=== PATIENT | female | born 1960 | race Caucasian/White ===

== ENCOUNTER 2018-08-03 08:37 | Outpatient (CLI) | payer BC ==
--- NOTE | 2018-08-03 09:32 | ULT ---
US Cyst Aspiration History: Infection. Pain. Comparison: Radiograph 2014 Findings: No significant joint fluid. No abnormal mass. Impression: No significant joint fluid for aspiration.
== END 2018-08-03 08:38 | disposition home or self-care (01) ==
LOC: RAD 08:37
DX: Z47.89 Encounter for other orthopedic aftercare (principal); M25.551 Pain in right hip
CPT/HCPCS: 76942

== ENCOUNTER 2020-04-02 14:05 | Inpatient (IN) | payer BC ==
[~2020-04-02 14:05] MED LIST: Iopamidol-370 76% 500 ML 1 ML ONE
[2020-04-02 14:42] LABS: #Eosinphils 0.1 thou/uL (0.0-0.7); #Lymphocytes 2.2 thou/uL (1.20-3.40); #Monocytes 1.2 thou/uL (0.11-0.59); #Neutrophils 15.9 thou/uL (1.40-6.50); %Basophils 0.1 % (0.0-1.0); %Eosinophils 0.3 % (0.0-10.0); %Lymphocytes 11.4 % (21.0-51.0); %Neutrophils 82.2 % (42.0-75.0); Hemoglobin 9.7 g/dL (12.0-16.0); Mean Corpuscular HGB CONC 32.3 g/dL (32.0-36.0); Mean Corpuscular Hemoglobin 29.2 pg (27.0-31.0); Mean Corpuscular Volume 90.5 fL (78.0-98.0); Mean Platelet Volume 6.1 fL (7.4-10.4); Platelet Count 742 thou/uL (130-400); RBC Distribution Width 13.1 % (11.5-14.5); Red Blood Cell (RBC) Count 3.31 mill/uL (4.20-5.40); White Blood Cell (WBC) Count 19.3 thou/uL (4.8-10.8)
[2020-04-02 15:01] LABS: ALT (SGPT) 44 U/L (8-55); AST (SGOT) 43 U/L (5-34); Albumin 2.5 g/dL (3.5-5.0); Alkaline Phosphatase 152 U/L (40-110); Anion Gap 15 mmol/L (10-20); BUN (Urea Nitrogen) 11 mg/dL (9.8-20.1); Bilirubin, Total 0.8 mg/dL (0.2-1.2); Calc. Creatinine Clearance 0 mL/min (70-130); Calcium 8.1 mg/dL (7.8-10.44); Carbon Dioxide 28 mmol/L (22-29); Chloride 96 mmol/L (98-107); Globulin 4.4 g/dL (2.4-3.5); Glucose 136 mg/dL (70-105); Protein, Total 6.9 g/dL (6.0-8.3); Sodium 136 mmol/L (136-145)
[2020-04-02 15:09] LABS: Potassium 2.9 mmol/L (3.5-5.1)
[2020-04-02] MEDS ORDERED: Heparin 1,000 UNITS/ML VIAL ONE (16:38)
[2020-04-02] MEDS ORDERED: Cefepime 2 GM VIAL ONE (16:51)
[2020-04-02] MEDS ORDERED: Promethazine HCl 25 MG/ML VIAL ONE (16:51)
--- NOTE | 2020-04-02 18:19 | CT ---
CT ABDOMEN WITH CONTRAST CT PELVIS WITH CONTRAST: DATE: 04/02/2020 HISTORY: 60-year-old female with recurrent UTI, but with worsening symptoms, malaise, nausea, vomiting, chills , and fever, despite antibiotic therapy. Rule out perinephric abscess. COMPARISON: none TECHNIQUE: IV injection of iodinated contrast media: administered. Oral contrast media:Not administered FINDINGS: There is a low-density lesion with density of 33 Hounsfield units within the left psoas muscle, expan ding the left psoas muscle from L1 to L5, measuring approximately 3.5 cm AP by 2.2 cm transverse by 13 cm craniocaudal. The inferior aspect of the left psoas muscle through lower L5, S1, and lower leve ls, is enlarged, without the low-attenuation lesion in it. There is no evidence of pyelonephritis or hydronephrosis. Small bilateral pleural effusions. Right femoral head, neck, and much of the intertrochanteric bone, are absent. Between the right remaining proximal femur and the empty right hip socket, there is an irregularly-sh aped large fluid collection measuring approximately 14 x 6.5 x 8 cm, with thick soft tissue density renee (probably enhancing). There are multiple scars overlying this large collection. The right acetabulum is widened, and has irregular surfaces. Normal, thin renee of urinary bladder. Approximately 1 x 1.5 cm diverticulum protruding from the posterior lateral surface of the urinary bl adder. Small amount of free fluid in the dependent portion of the pelvic cavity on the right. No convincing evidence of colonic diverticulitis. No small bowel dilation or pneumoperitoneum. No major pathology of abdominal aorta, adrenals, pancreas, liver, or spleen. Tiny calcified gallstones at the fundus. No pericholecystic edema. Levoscoliosis of lumbar spine. Multilevel high-grade degenerative disc disease of lumbar spine. IMPRESSION: 1) vertically long low-density lesion expanding the left psoas muscle, plus additional expansion of l ower left psoas muscle. This could represent intramuscular abscess plus myositis or intramuscular hematoma. 2.) Status post disarticulation of right hip. 3) large, complex fluid collection at the disarticulation site. This could represent chronic hematoma or abscess. 4) small bilateral pleural effusions 5) high-grade lumbar spondylosis with levoscoliosis.
[2020-04-02 18:47] LABS: Bacteria/HPF None Seen HPF (None Seen); Bilirubin Negative (Negative); Blood, Urine Trace (Negative); Clarity Clear (Clear); Glucose, Urine (Dipstick) Normal (Negative); Ketone, Urine Negative (Negative); Leukocyte Negative Leu/uL (Negative); Nitrite Negative (Negative); Protein, Urine (Dipstick) 10 mg/dL (Neg-Trace); RBC/HPF 0-3 HPF (0-3); Specific Gravity, Urine 1.026 (1.002-1.036); Squamous Epithelial 0-3 HPF (0-3); Urobilinogen Normal mg/dL (Less than 2); WBC/HPF 0-3 HPF (0-3); pH, Urine 6.5 (5.0-9.0)
--- NOTE | 2020-04-02 18:53 | RAD ---
PORTABLE CHEST ONE VIEW: Date: 04-02-2020 Time: 6:14 p.m. History: Sepsis Comparison: None FINDINGS: The heart size is normal. No lobar consolidation, pneumothoraces or pleural effusions are seen. IMPRESSION: No acute process. POS: MEG
[2020-04-02] MEDS ORDERED: Vancomycin 1 GM/200 ML BAG ONE (19:14)
[2020-04-02 19:21] LABS: Lactic Acid 1.4 mmol/L (0.5-2.2)
[2020-04-02 19:29] LABS: SARS-CoV-2 NAA Rapid Test Not Detected (NotDetected)
[2020-04-02] MEDS ORDERED: Acetaminophen 500 MG TAB ONE (22:21)
[2020-04-03] MEDS ORDERED: Vancomycin 1 GM in Premix Bag 1 BAG IVPB SCH (06:00)
[2020-04-03] MEDS ORDERED: Cefepime 2 GM in Sodium Chloride 0.9% 100 ML IVPB SCH (06:00)
--- NOTE | 2020-04-03 07:58 | HP ---
CHIEF COMPLAINT: Sepsis with right hip abscess. HISTORY OF PRESENT ILLNESS: The patient is a 60-year-old female, who had come to see Dr. Stanford 7 to 10 days earlier with what appeared to be a bladder infection. Because the pain extended up her back somewhat and she presented with some CVA tenderness, she was treated with Rocephin IM injections. The patient failed to respond to therapy, continuing to have fever, at which point, it was recommended that she come to the emergency room for further evaluation. In [facility], CT scan revealed a large right hip articular fluid collection that is complex in nature. She had been febrile. At this point, it was decided to put her in the hospital for further evaluation. She has long history of difficulty with the right hip including disarticulation, prosthetic removal and infection. Dr. Peguero has seen the patient in the past and has treated her for hip dislocation. PAST MEDICAL HISTORY: Significant for osteoarthritis, multiple hip procedures, history of pulmonary embolism greater than 20 years ago and a fractured sternum. PAST SURGICAL HISTORY: The patient's surgeries include a cervical fusion of C5 through C6, right hip replacement, right femur surgery. The aforementioned multiple right hip surgeries, left and right knee surgery. PSYCHIATRIC HISTORY: Has been significant for depression. SOCIAL HISTORY: Drinks socially once a month. Denies drug use. There is no smoking history. ALLERGIES: TO LEVAQUIN. CURRENT MEDICATIONS: Only the aforementioned Rocephin 1 g IM on a daily basis since last mid week. REVIEW OF SYSTEMS: CONSTITUTIONAL: Admits to general fatigue, malaise, and fever. HEENT: Denies drainage or pain in eyes, ears, nose, or throat. CHEST: Denies shortness of breath or coughing. CARDIOVASCULAR: Denies chest pain or palpitations. GASTROINTESTINAL: Has had recurrent nausea with occasional bouts of emesis. No diarrhea. GENITOURINARY: No longer has dysuria or blood in urine or stool. MUSCULOSKELETAL: Has had a disarticulated hip for some time. Has been wheelchair bound and has arthritis also in her foot. SKIN: No new rashes or lesions. NEUROLOGICAL: Cranial nerves are intact. Mentation is good. Denies headaches. PHYSICAL EXAMINATION: At the time of admission; VITAL SIGNS: Blood pressure on arrival 135/90, pulse 104, respirations 22, and temperature 102.1. Pain scale 4/10 with an O2 saturation of 93% on room air. She denies any exposure to COVID illness. HEENT: Normocephalic, atraumatic. Pupils are equal, round, and reactive to light. Extraocular muscles are intact. TMs, nares, and pharynx are clear. NECK: Supple. CHEST: Clear to auscultation. BREASTS: Deferred. HEART: Regular rate and rhythm without murmur. Tachycardic. ABDOMEN: Soft, nontender without appreciable organomegaly. GENITOURINARY: Deferred. EXTREMITIES: Without clubbing or cyanosis. There is mild edema present. SKIN: No rashes or lesions. NEUROLOGIC: Cranial nerves are intact. Unable to test gait and cerebellar function. Sensory exam is grossly intact. Mental status is clear. LABORATORY DATA: Thus far shows WBCs at 19,300, hemoglobin 9, hematocrit 30, and platelets at 742, with a left shift. Sedimentation rate is elevated at 111. CRP is elevated at 26.45. Electrolytes; sodium 136, potassium 2.9, chloride 96, CO2 of 28, BUN 11, creatinine 0.68 with a GFR of 88, and glucose 136. Lactic acid 2.7 initially down to 1.4 four hours later. AST slightly elevated at 43, ALT 44, alkaline phosphatase elevated at 152. Urinalysis has trace blood and she has influenza and COVID negative. Chest x-ray shows no acute process. CT of the abdomen and pelvis reveals a large complex fluid collection at the disarticulation site. She also has disarticulated right hip, small bilateral pleural effusions and high-grade lumbar spondylosis with levoscoliosis. ASSESSMENT: 1. Sepsis. 2. Right hip abscess. PLAN: Will be Orthopedic consultation for possible open drainage versus a radiological aspiration. We will continue her on her antibiotics, pain management, and serial re-evaluation. She is currently medically stable. Face time was 30 minutes. Job ID: [id number]
[2020-04-03 10:45] LABS: #Eosinphils 0.2 thou/uL (0.0-0.7); #Lymphocytes 1.5 thou/uL (1.20-3.40); #Neutrophils 9.2 thou/uL (1.40-6.50); %Basophils 0.3 % (0.0-1.0); %Eosinophils 1.4 % (0.0-10.0); %Lymphocytes 12.4 % (21.0-51.0); %Neutrophils 77.8 % (42.0-75.0); Hemoglobin 7.9 g/dL (12.0-16.0); Mean Corpuscular HGB CONC 32.6 g/dL (32.0-36.0); Mean Corpuscular Hemoglobin 30.1 pg (27.0-31.0); Mean Corpuscular Volume 92.2 fL (78.0-98.0); Mean Platelet Volume 6.1 fL (7.4-10.4); Platelet Count 540 thou/uL (130-400); RBC Distribution Width 13.2 % (11.5-14.5); Red Blood Cell (RBC) Count 2.63 mill/uL (4.20-5.40); White Blood Cell (WBC) Count 11.8 thou/uL (4.8-10.8)
[2020-04-03 10:58] LABS: Anion Gap 11 mmol/L (10-20); BUN (Urea Nitrogen) 7 mg/dL (9.8-20.1); Calc. Creatinine Clearance 168 mL/min (70-130); Calcium 7.5 mg/dL (7.8-10.44); Carbon Dioxide 28 mmol/L (22-29); Chloride 103 mmol/L (98-107); Glucose 100 mg/dL (70-105); Sodium 139 mmol/L (136-145)
[2020-04-03 11:04] LABS: Potassium 2.7 mmol/L (3.5-5.1)
[2020-04-03] MEDS ORDERED: Ondansetron PF 4 MG/2 ML Vial IVP PRN (11:59)
[2020-04-03] MEDS: NS 0.9% w/ 20 MEQ KCL 1,000 ML IV SCH ×2 (13:16→19:15)
[2020-04-03] MEDS: Acetaminophen 325 MG TAB PO PRN (13:17)
[2020-04-03 15:10] LABS: INR-International Normal Ratio 1.3; PTT 40.1 sec (22.9-36.1); Prothrombin Time 16.9 sec (12.0-14.7)
[2020-04-03] MEDS ORDERED: Sodium Bicarbonate 2.5 MEQ/5 ML VIAL ONE (15:30)
[2020-04-03 18:08] LABS: RBC Count-Automated (BF) 2326 /cu.mm; WBC/Nucleated-Auto (BF) 30904 uL
[2020-04-03 18:10] LABS: BF Color Yellow; Body Fluid Source Synovial Fluid; Clarity Cloudy/Turbid (Clear); Tube # EDTA
[2020-04-03] MEDS: Cefepime 2 GM in Sodium Chloride 0.9% 100 ML IVPB SCH (18:11)
[2020-04-03 18:12] LABS: BF Segmented Neutrophils 81 %; Cell Count Non Hematic 17 %; Lymphocytes 2 %
[2020-04-03] MEDS: Potassium Chloride 20 MEQ TAB PO SCH (18:12)
[2020-04-03 18:24] LABS: Synovial Fluid, Protein 3.9 g/dL (Not Available)
[2020-04-03 18:50] LABS: Iron 11 ug/dL (50-170); Iron Binding Capacity, Total 105 mcg/dL (265-497)
[2020-04-03] MEDS: Vancomycin 1.5 GRAM/300 ML BAG 1.5 GM in Premix Bag 1 BAG IVPB SCH (19:00)
[2020-04-03] MEDS: Acetaminophen/Codeine 30-300mg Tablet PO PRN (19:20)
[2020-04-03] MEDS: Promethazine HCl 25 MG in Sodium Chloride 0.9% 50 ML IVPB PRN (20:46)
[2020-04-03] MEDS: HYDROcodone/Acetaminophen 5/325 mg Tablet PO PRN (23:30)
[2020-04-04] MEDS: NS 0.9% w/ 20 MEQ KCL 1,000 ML IV SCH ×3 (04:20→20:13)
[2020-04-04] MEDS: Cefepime 2 GM in Sodium Chloride 0.9% 100 ML IVPB SCH ×2 (04:20→16:12)
[2020-04-04] MEDS: Vancomycin 1.5 GRAM/300 ML BAG 1.5 GM in Premix Bag 1 BAG IVPB SCH ×2 (05:31→18:25)
[2020-04-04 06:05] LABS: #Eosinphils 0.3 thou/uL (0.0-0.7); #Lymphocytes 1.6 thou/uL (1.20-3.40); #Monocytes 0.9 thou/uL (0.11-0.59); #Neutrophils 7.2 thou/uL (1.40-6.50); %Basophils 0.5 % (0.0-1.0); %Eosinophils 2.9 % (0.0-10.0); %Lymphocytes 16.1 % (21.0-51.0); %Monocytes 8.8 % (0.0-10.0); %Neutrophils 71.8 % (42.0-75.0); Mean Corpuscular HGB CONC 31.8 g/dL (32.0-36.0); Mean Corpuscular Hemoglobin 28.8 pg (27.0-31.0); Mean Corpuscular Volume 90.8 fL (78.0-98.0); Platelet Count 568 thou/uL (130-400); RBC Distribution Width 13.4 % (11.5-14.5); Red Blood Cell (RBC) Count 2.42 mill/uL (4.20-5.40)
[2020-04-04 06:23] LABS: Anion Gap 11 mmol/L (10-20); BUN (Urea Nitrogen) 7 mg/dL (9.8-20.1); Calc. Creatinine Clearance 188 mL/min (70-130); Calcium 7.3 mg/dL (7.8-10.44); Carbon Dioxide 23 mmol/L (22-29); Chloride 105 mmol/L (98-107); Glucose 94 mg/dL (70-105); Potassium 3.4 mmol/L (3.5-5.1); Sodium 136 mmol/L (136-145)
--- NOTE | 2020-04-04 08:29 | CT ---
PROCEDURE: CT Pelvis WO Con PROVIDED CLINICAL HISTORY: Large fluid collection right hip joint. Aspiration and possible drainage of collection was requested. COMPARISON: CT abdomen and pelvis on 04/02/2020 TECHNIQUE: The procedure including the risks and common locations were explained the patient, informed consent w as obtained. Patient was placed on the CT scan table in the supine position. Limited noncontrasted CT scan was obtained through the pelvis with grid localizer overlying right hip. An area was marked a nd then meticulously prepped and draped in usual sterile fashion. The skin and subcutaneous tissues were infiltrated with buffered 1% lidocaine for local anesthesia. A 21-gauge micropuncture needle was advanced followed by axial noncontrasted CT images. Needle was then further advanced, and there was a return of nonviscous yellow fluid. Approximately 22 mL of flui d was aspirated. Fluid was evaluated by KELVIN Toro of the orthopedic service and only aspiration was requested this time. Specimen was sent for labs. The needle was removed, and hemostasis was achieved with direct pressure. Dry sterile dressing was pl aced. The patient tolerated the procedure well and without immediate complication. IMPRESSION: 1. Large right hip joint fluid collection. 2. Technically successful CT-guided aspiration of the right hip collection. Labs are currently pendnatacha g.
[2020-04-04] MEDS: Ferrous Sulfate 325 MG TAB PO SCH ×2 (08:50→16:12)
[2020-04-04] MEDS: Folic Acid 1 MG TAB PO SCH (08:50)
[2020-04-04] MEDS: Potassium Chloride 20 MEQ TAB PO SCH ×2 (08:50→16:12)
--- NOTE | 2020-04-04 12:18 | PRG ---
DATE OF SERVICE: 04/04/2020 SUBJECTIVE: Unfortunately, Luis's hip aspiration yielded gram negative rods. I have talked to Dr. Rasheed this morning about another aspiration and placement of a pigtail drainage tube. Her anemia has gotten little worse. Her hemoglobin is 7 and hematocrit 22 this morning. She actually ran a fever last night, and she has been a little tachycardic. Clinically, she looked good yesterday, but I believe she has deteriorated a little bit with sats being lower in the range of 91% to 92% on nasal cannula 1 L. Yesterday, she was 95%. On exam, her hip exam is essentially unchanged and no imaging has been performed. 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 PLAN: 1. I have talked to Dr. Rasheed about reinserting today and leaving a pigtail catheter. 2. Dr. Nieto has been consulted, and I believe 2 units of packed red cells have been ordered. 3. At this point, no plans to take the patient to the operating room for surgical intervention since her blood cultures are gram-positive cocci and she has gram-negative rods in her pseudo-joint on the right. At this point, we will just attempt to decompress as best as possible and await treatment recommendations from Dr. Nieto. Job ID: [id number]
[2020-04-04] MEDS: Acetaminophen 325 MG TAB PO PRN (12:53)
[2020-04-04] MEDS ORDERED: Midazolam HCl 2 mg/2 ml Vial ONE (13:28)
[2020-04-04] MEDS ORDERED: Sodium Bicarbonate 2.5 MEQ/5 ML VIAL ONE (13:28)
[2020-04-04] MEDS ORDERED: Fentanyl 100 MCG/2 ML VIAL ONE (13:28)
--- NOTE | 2020-04-04 17:11 | CT ---
PROCEDURE: CT guided drainage right hip fluid collection PROVIDED CLINICAL HISTORY: Patient with large right hip fluid collection. Aspiration one day ago demonstrated gram-negative rods . Placement of drainage catheter was requested. COMPARISON: CT abdomen and pelvis on 04/02/[address] pelvis on 04/03/2019 TECHNIQUE: After informed consent was obtained, the patient was placed on the CT scan table in the supine positi on. Limited noncontrasted CT scan was obtained through the pelvis with grid localizer overlying the right hip. An area was marked and then meticulously prepped and draped in usual sterile fashion. Skin and subcutaneous tissues were infiltrated with buffered 1% lidocaine for local anesthesia at the intended puncture site. A 21-gauge needle was advanced into the collection and confirmation was obtained with axial noncontrasted CT images. Yellow fluid was aspirated. The needle was exchanged ove r a 0.018 inch guidewire for a 5 Swiss introducer catheter. The guidewire was replaced with a 0.035 inch Amplatz guidewire, and an 8 Swiss tissue dilator followed by placement of an 8 Swiss sonoscope operator e loop all-purpose drainage catheter was placed. The guidewire was removed. Follow-up imaging demonstrates catheter within the collection right hip. The catheter was sutured in place utilizing 2-0 Ethilon suture material and placed to gravity drainag e. Dry sterile dressing was placed. The patient tolerated the procedure well and without immediate complication. IMPRESSION: Technically successful CT-guided percutaneous drainage of right hip collection. An 8 Swiss all-purp ose drainage catheter was placed in the collection.
[2020-04-04 17:30] LABS: Vancomycin, Trough 15.1 ug/mL
[2020-04-04] MEDS: HYDROcodone/Acetaminophen 5/325 mg Tablet PO PRN (20:12)
[2020-04-04] MEDS: Promethazine HCl 25 MG in Sodium Chloride 0.9% 50 ML IVPB PRN (22:04)
[2020-04-05] MEDS: NS 0.9% w/ 20 MEQ KCL 1,000 ML IV SCH ×3 (03:38→20:04)
[2020-04-05] MEDS: Cefepime 2 GM in Sodium Chloride 0.9% 100 ML IVPB SCH ×2 (04:57→15:52)
[2020-04-05] MEDS: Vancomycin 1.5 GRAM/300 ML BAG 1.5 GM in Premix Bag 1 BAG IVPB SCH ×2 (05:03→17:51)
[2020-04-05 06:27] LABS: #Eosinphils 0.3 thou/uL (0.0-0.7); #Lymphocytes 1.5 thou/uL (1.20-3.40); #Monocytes 0.8 thou/uL (0.11-0.59); #Neutrophils 6.3 thou/uL (1.40-6.50); %Basophils 0.2 % (0.0-1.0); %Eosinophils 3.4 % (0.0-10.0); %Monocytes 9.2 % (0.0-10.0); %Neutrophils 70.2 % (42.0-75.0); Hemoglobin 7.4 g/dL (12.0-16.0); Mean Corpuscular HGB CONC 30.9 g/dL (32.0-36.0); Mean Corpuscular Hemoglobin 28.7 pg (27.0-31.0); Mean Corpuscular Volume 92.7 fL (78.0-98.0); Mean Platelet Volume 6.2 fL (7.4-10.4); Platelet Count 649 thou/uL (130-400); RBC Distribution Width 13.7 % (11.5-14.5); Red Blood Cell (RBC) Count 2.59 mill/uL (4.20-5.40)
--- NOTE | 2020-04-05 06:37 | CON ---
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 BRIEF CLINICAL HISTORY: Luis is a 60-year-old female, we were consulted on for evaluation of right-sided hip pain, which has been present and progressive for the last month or so. Her surgical history is somewhat complex, goes back to 2013 for primary total hip replacement in [facility]. She has a brother, who is an interventional radiologist in that area and practices in [place]. Approximately within a year or two after her primary right hip total arthroplasty, she developed a Pseudomonas infection requiring revision. After returning home, the revision itself also dislocated requiring closed reduction by a local orthopedist transmission inspector. She subsequently went back to [place] and again excisional arthroplasty was carried out and I believe she had antibiotic spacers placed and again these were removed subsequently, and ultimately, the patient ended up with a Girdlestone procedure. The final surgery was in 2018. Over the last couple of years, she has been looking for an orthopedist to reverse the Girdlestone and I believe she has an appointment at [facility] in April or May for evaluation consideration of this. More recently, she has had flu-like symptoms and COVID negative test and constitutional symptoms to include fever, malaise, and discomfort in the right buttock and thigh. No drainage is reported. No erythema. Subjective fevers have been reported. She has been admitted by Dr. Stanford and our service was consulted for orthopedic evaluation of this chronic problem. Temperature was 99.8 at 12:30, but returned to normal on the morning of evaluation. Her vitals remained stable. Her hemoglobin and hematocrit were low at 7.9. She was admitted at 9.7. I do not know if there is a dilutional effect going on here, but she does not have a history of chronic anemia. PHYSICAL EXAMINATION: She has an incision on the right hip consistent with multiple posterior approaches with scarring and involution of the old incision. She is neurovascularly intact in the right lower extremity. Mild provocative pain is noted with internal and external rotation of the right femur and flexion and extension are also provocative and concordant for discomfort. IMAGING STUDIES: A CT examination of the pelvis demonstrates her to have a large fluid collection in the area of prior hip. IMPRESSION: This is a lady with a complex right hip arthroplasty and multiple failures resulting in Girdlestone and now a false joint. There is a large fluid accumulation and she has a blood culture, which demonstrates gram-positive cocci. She does have a mild white count, it has been trending down. PLAN: We will go ahead and consult with Interventional Radiology for a CT-guided aspiration of the fluid accumulation in the right hip area. At the same time, we may give consideration to placement of a drain depending on gross appearance of specimen. Otherwise, we will order Gram stain, culture, sensitivity, crystal analysis as well as glucose protein of the aspirate. I will follow up with the patient after the aspiration and clinically evaluate the specimen myself for String sign and other indices of infection by gross appearance. We will follow the patient tomorrow. Job ID: [id number]
[2020-04-05 06:50] LABS: Anion Gap 8 mmol/L (10-20); BUN (Urea Nitrogen) 9 mg/dL (9.8-20.1); Calc. Creatinine Clearance 186 mL/min (70-130); Calcium 7.3 mg/dL (7.8-10.44); Carbon Dioxide 25 mmol/L (22-29); Chloride 108 mmol/L (98-107); Glucose 106 mg/dL (70-105); Potassium 3.9 mmol/L (3.5-5.1); Sodium 137 mmol/L (136-145)
[2020-04-05] MEDS: Ferrous Sulfate 325 MG TAB PO SCH ×2 (08:33→15:52)
[2020-04-05] MEDS: Folic Acid 1 MG TAB PO SCH (08:33)
[2020-04-05] MEDS: Docusate 100 MG CAP PO SCH ×2 (08:34→20:02)
[2020-04-05] MEDS: Potassium Chloride 20 MEQ TAB PO SCH ×2 (08:34→15:52)
[2020-04-05] MEDS: Acetaminophen 325 MG TAB PO PRN ×2 (08:34→17:51)
[2020-04-05] MEDS: Metamucil PACK PO SCH (09:32)
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
[2020-04-05] MEDS: HYDROcodone/Acetaminophen 5/325 mg Tablet PO PRN ×2 (15:52→20:02)
--- NOTE | 2020-04-05 16:13 | MRI ---
Exam: Lumbar spine MRI with and without contrast HISTORY: Bacteremia. Back pain. Psoas abscess. Comparison: None FINDINGS: There is extensive T1 marrow signal hypointensity involving T10, T11, T12, L1, L2, L4 and L5. Postcon trast images demonstrate heterogeneous enhancement predominantly at T10, T11, L1 and L2. There is also enhancement involving the T10-T11 and L1-L2 disc spaces. There is evidence of multifocal disciti s osteomyelitis. There is enhancing phlegmon along the paraspinal soft tissues at T10, T11, L2. There is a left psoas abscess measuring 2.2 x 3.4 cm. There is a small right psoas abscess measuring 0.9 x 1.4 cm. There is a peripherally enhancing fluid collection along the anterior epidural space starting at T10 extending inferiorly to the L1-L2 disc space. Findings are compatible with an anterior epidural abscess, measuring 1.6 cm mediolateral by 0.9 cm anterior-posterior the T12-L1 disc space. There is a n additional anterior epidural abscess starting at the L3-L4 disc space and extending inferiorly to the lumbosacral junction. At the L3-L4 disc space, this epidural abscess measures 0.9 x 0.8 cm. T9-T10: No significant central canal stenosis T10-T11: Small amount of infected anterior epidural fluid. Mild central canal stenosis. Moderate bila teral neural foraminal narrowing T11-T12: Discitis/osteomyelitis. Central/left paracentral epidural abscess with moderate central jesu l stenosis. Moderate bilateral neural foraminal narrowing T12-L1: Severe central canal stenosis secondary to a ventral epidural abscess. Mild bilateral foramin al narrowing L1-L2: Discitis, ventral epidural abscess with moderate central canal stenosis. Moderate to severe bi lateral neural foraminal narrowing L2-L3: Mild central canal stenosis secondary to broad-based disc bulge. No significant central canal stenosis. Moderate bilateral neural foraminal narrowing L3-L4: Possible mild discitis osteomyelitis. Mild central canal stenosis. Moderate to severe right fo raminal narrowing. Left neural foramen is patent L4-L5: Possible annular fissure. Moderate central canal stenosis predominantly due to ventral epidura l abscess. Moderate bilateral foraminal narrowing L5-S1: No significant central canal stenosis. Neural foramina are patent IMPRESSION: 1. Extensive discitis osteomyelitis as described above. There is discitis osteomyelitis at T10-T11, L 1-L2 as well as at L3-L4. 2. Extensive ventral epidural abscess starting at T10 and terminating at L1-L2 disc space. Second epi dural abscess starting at the L3-L4 disc space terminating at the S1 level. 3. Bilateral psoas abscesses with paraspinal phlegmonous changes as described above 4. Central canal stenosis and neural foramina as detailed above. Results study conveyed to Dr. Nieto to 12/13/2020 at 4:12 PM Code CR Transcribed Date/Time: 04/05/2020 4:23 PM
--- NOTE | 2020-04-05 16:29 | MRI ---
MRI Lower Ext Jt Lt W WO Con History: Foot swelling. Bacteremia Comparison: Foot radiograph March 25, 2020 Findings: Bones: On the T1 weighted imaging sequence there are no abnormal foci of marrow signal repl acement to suggest osteomyelitis. High-grade degenerative disease of the first tarsometatarsal joint. Moderate degenerative disease is seen in the navicular and intermediate and lateral cuneiforms . Lisfranc interval is maintained. Lisfranc ligament is intact. Soft tissues: There is a partially decompressed bursa between the abductor brevis muscle and flexor d igitorum tendons with complete enhancement, not peripheral enhancement, measuring 1.2 cm in transverse dimension with an AP dimension of 5 mm and a length of 15 mm. There is also a bursa which also has complete internal enhancement between the abductor hallucis myotendinous junction and plantar aspect of the great toe metatarsal base measuring 11 mm in transverse with an AP dimension of 6 mm and a length of 12 mm. Mild dorsal forefoot soft tissue swelling. Muscles: No pyomyositis. Tendons: No infectious tenosynovitis appreciated. Impression: 1. No osteomyelitis. 2. High-grade degenerative disease between the first tarsometatarsal joint and between the navicular intermediate lateral cuneiforms joints. 3. Mild deep forefoot bursitis between the flexor digitorum tendons and adductor hallucis muscle and just deep to the great toe tarsometatarsal joint. Transcribed Date/Time: 04/05/2020 4:33 PM
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
[2020-04-06] MEDS: HYDROcodone/Acetaminophen 5/325 mg Tablet PO PRN ×3 (03:13→23:02)
[2020-04-06] MEDS: NS 0.9% w/ 20 MEQ KCL 1,000 ML IV SCH ×3 (03:14→21:03)
[2020-04-06] MEDS: Cefepime 2 GM in Sodium Chloride 0.9% 100 ML IVPB SCH ×2 (05:25→17:33)
[2020-04-06 05:39] LABS: Vancomycin, Trough 15.7 ug/mL
[2020-04-06] MEDS: Vancomycin 1.5 GRAM/300 ML BAG 1.5 GM in Premix Bag 1 BAG IVPB SCH ×2 (05:54→17:00)
[2020-04-06] MEDS: Metamucil PACK PO SCH (08:42)
[2020-04-06] MEDS: Potassium Chloride 20 MEQ TAB PO SCH ×2 (08:44→16:05)
[2020-04-06] MEDS: Ferrous Sulfate 325 MG TAB PO SCH ×2 (08:44→16:05)
[2020-04-06] MEDS: Docusate 100 MG CAP PO SCH ×2 (08:44→20:58)
[2020-04-06] MEDS: Folic Acid 1 MG TAB PO SCH (08:44)
--- NOTE | 2020-04-06 10:21 | PRG ---
DATE OF SERVICE: 04/06/2020 SUBJECTIVE: The patient was seen and examined. I agree with Samira Grover's evaluation on 04/05/2020. The patient is a 60-year-old woman with a complex history that began in 2019 with hip surgery followup which was complicated by multiple infections and multiple surgeries. She was recently admitted with recurrent infectious issues and bacteremia and has been found to have MRSA bacteremia as well as recurrent right hip infection. The course for evaluation, MRI of lumbar spine has been performed. This reveals extensive diskitis, osteomyelitis that extends from T10 through the sacrum. There is a psoas extension particularly in the left psoas. The patient has epidural abscess formation in multiple locations in the lumbar spine. It is most pronounced and significant at the T12-L1 level or it is ventral and right-sided. The patient has no neurologic manifestations in her legs or groin. IMPRESSION AND PLAN: The patient has a very extensive spinal infection. This is a high morbidity and probably high mortality situation. We will defer to Dr. Nieto regarding systemic management. She is on appropriate IV antibiotics. General Surgery was consulted regarding drainage of the psoas abscess and did not feel it should be drained via open technique. I believe that Dr. Nieto will also get an opinion from Interventional Radiology. I cannot access the psoas from a spinal approach. There are no surgical indications at this time for her spinal infection. No surgery is going to reduce her bacterial burden or affect her long-term treatment plan. Surgery should be reserved for decompression of the T12-L1 epidural abscess. Should she develop any neurologic deficit. I discussed her situation at length with the patient as well as with her son who was a physician in [place] by telephone. Job ID: [id number]
--- NOTE | 2020-04-06 13:06 | PRG ---
DATE OF SERVICE: 04/06/2020 SUBJECTIVE: Luis is a 60-year-old female, who has a complex history and new findings of a T12-L1 epidural abscess, osteomyelitis, and diskitis. Our findings on the right hip, serous pocket demonstrated Gram negative rods on microscopy, but cultures have been negative to this point. The patient was treated with a quinolone drug in the days prior to the aspiration. Radiology placed a percutaneous drain yesterday. Dr. Nieto has diagnosed her with epidural abscess and psoas abscess, both of which are nonoperative and have responded to antibiotics. She is feeling better today, but she still pretty weak. Exam, drain output does not appear grossly infected. She is down to 100 mL of output in the last 24 hours. IMPRESSION: 1. T12-L1 epidural abscess, most likely Methicillin-resistant Staphylococcus aureus in origin as well as a left-sided psoas abscess. This is probably most responsible for symptoms. 2. Right hip pseudocapsule and pseudarthrosis with serous fluid collection now decompressed, but question of Pseudomonas infection in this. PLAN: 1. I will have Radiology go ahead and place a PICC line for chronic IV antibiotic use and I have discussed this with Dr. Nieto. 2. We will have the right hip drain removed today while she is down in the department, having her PICC line placed. orders and discussed with the soldering technician. We will recheck the patient tomorrow. Job ID: [id number]
[2020-04-06] MEDS: Acetaminophen 325 MG TAB PO PRN (13:10)
--- NOTE | 2020-04-06 13:15 | CT ---
PROCEDURE: CT Pelvis WO Con PROVIDED CLINICAL HISTORY: Large fluid collection right hip joint. Aspiration and possible drainage of collection was requested. COMPARISON: CT abdomen and pelvis on 04/02/2020 TECHNIQUE: The procedure including the risks and common locations were explained the patient, informed consent w as obtained. Patient was placed on the CT scan table in the supine position. Limited noncontrasted CT scan was obtained through the pelvis with grid localizer overlying right hip. An area was marked a nd then meticulously prepped and draped in usual sterile fashion. The skin and subcutaneous tissues were infiltrated with buffered 1% lidocaine for local anesthesia. A 21-gauge micropuncture needle was advanced followed by axial noncontrasted CT images. Needle was then further advanced, and there was a return of nonviscous yellow fluid. Approximately 22 mL of flui d was aspirated. Fluid was evaluated by KELVIN Toro of the orthopedic service and only aspiration was requested this time. Specimen was sent for labs. The needle was removed, and hemostasis was achieved with direct pressure. Dry sterile dressing was pl aced. The patient tolerated the procedure well and without immediate complication. IMPRESSION: 1. Large right hip joint fluid collection. 2. Technically successful CT-guided aspiration of the right hip collection. Labs are currently caty orantes Transcribed Date/Time: 04/06/2020 1:15 PM
--- NOTE | 2020-04-06 13:18 | CT ---
PROCEDURE: CT guided drainage right hip fluid collection PROVIDED CLINICAL HISTORY: Patient with large right hip fluid collection. Aspiration one day ago demonstrated gram-negative rods . Placement of drainage catheter was requested. COMPARISON: CT abdomen and pelvis on 04/02/[address] pelvis on 04/03/2019 TECHNIQUE: After informed consent was obtained, the patient was placed on the CT scan table in the supine positi on. Limited noncontrasted CT scan was obtained through the pelvis with grid localizer overlying the right hip. An area was marked and then meticulously prepped and draped in usual sterile fashion. Skin and subcutaneous tissues were infiltrated with buffered 1% lidocaine for local anesthesia at the intended puncture site. A 21-gauge needle was advanced into the collection and confirmation was obtained with axial noncontrasted CT images. Yellow fluid was aspirated. The needle was exchanged ove r a 0.018 inch guidewire for a 5 [place] introducer catheter. The guidewire was replaced with a 0.035 inch Amplatz guidewire, and an 8 [place] tissue dilator followed by placement of an 8 [place] naval aircrewman helicopter e loop all-purpose drainage catheter was placed. The guidewire was removed. Follow-up imaging demonstrates catheter within the collection right hip. The catheter was sutured in place utilizing 2-0 Ethilon suture material and placed to gravity drainag e. Dry sterile dressing was placed. The patient tolerated the procedure well and without immediate complication. IMPRESSION: Technically successful CT-guided percutaneous drainage of right hip collection. An 8 [place] all-purp ose drainage catheter was placed in the collection. Transcribed Date/Time: 04/06/2020 1:17 PM
[2020-04-06] MEDS ORDERED: Fleet Enema 133 ML BOT PR SCH (14:00)
--- NOTE | 2020-04-06 15:54 | SPC ---
Left upper extremity PICC placement sonographic guided HISTORY: Epidural abscess. FINDINGS: After explaining the procedure and answering all questions, left upper extremity was preppe d and draped in usual sterile fashion. Sterile technique, buffered local anesthesia, sonographic guidance, and a 22-gauge needle were used t o carefully access the left cephalic vein. Standard technique was used to place the tip of a 5 [place] single lumen PICC so that the tip lies at the level of the superior vena cava. Catheter was flushed and secured externally. Patient tolerated the procedure well. As requested, the percutaneous drain at the right hip was removed after careful ligation of the drain and removal of the retention suture. No difficulty or complication. Patient was returned in unchanged condition. Fluoroscopy time 0 seconds. IMPRESSION : Left upper extremity PICC is ready for use.
[2020-04-06] MEDS ORDERED: Cefepime 2 GM in Sodium Chloride 0.9% 100 ML IVPB SCH (17:30)
[2020-04-06 18:36] LABS: H. pylori IgA ABS Less than 9.0 units (0.0-8.9); H. pylori IgG ABS 0.22 (0.00-0.79); H. pylori IgM ABS Less than 9.0 units (0.0-8.9)
[2020-04-07] MEDS: NS 0.9% w/ 20 MEQ KCL 1,000 ML IV SCH ×2 (02:36→11:54)
[2020-04-07] MEDS: Cefepime 2 GM in Sodium Chloride 0.9% 100 ML IVPB SCH ×2 (04:55→17:11)
[2020-04-07] MEDS: HYDROcodone/Acetaminophen 5/325 mg Tablet PO PRN ×4 (05:35→21:38)
[2020-04-07] MEDS: Vancomycin 1.5 GRAM/300 ML BAG 1.5 GM in Premix Bag 1 BAG IVPB SCH ×2 (05:36→18:39)
[2020-04-07 05:58] LABS: Anion Gap 13 mmol/L (10-20); BUN (Urea Nitrogen) 6 mg/dL (9.8-20.1); Calc. Creatinine Clearance 190 mL/min (70-130); Calcium 7.7 mg/dL (7.8-10.44); Carbon Dioxide 23 mmol/L (22-29); Chloride 107 mmol/L (98-107); Glucose 81 mg/dL (70-105); Potassium 4.7 mmol/L (3.5-5.1); Sodium 138 mmol/L (136-145)
[2020-04-07 06:03] LABS: #Eosinphils 0.4 thou/uL (0.0-0.7); #Lymphocytes 1.4 thou/uL (1.20-3.40); #Monocytes 0.9 thou/uL (0.11-0.59); #Neutrophils 5.3 thou/uL (1.40-6.50); %Eosinophils 5.4 % (0.0-10.0); %Lymphocytes 17.9 % (21.0-51.0); %Monocytes 10.8 % (0.0-10.0); %Neutrophils 65.9 % (42.0-75.0); Hemoglobin 8.3 g/dL (12.0-16.0); Mean Corpuscular HGB CONC 33.6 g/dL (32.0-36.0); Mean Corpuscular Hemoglobin 31.1 pg (27.0-31.0); Mean Corpuscular Volume 92.4 fL (78.0-98.0); Mean Platelet Volume 6.6 fL (7.4-10.4); Platelet Count 575 thou/uL (130-400); Red Blood Cell (RBC) Count 2.68 mill/uL (4.20-5.40); White Blood Cell (WBC) Count 8.1 thou/uL (4.8-10.8)
[2020-04-07] MEDS: Potassium Chloride 20 MEQ TAB PO SCH ×2 (08:57→17:10)
[2020-04-07] MEDS: Ferrous Sulfate 325 MG TAB PO SCH ×2 (08:57→17:10)
[2020-04-07] MEDS: Docusate 100 MG CAP PO SCH ×2 (08:57→20:15)
[2020-04-07] MEDS: Folic Acid 1 MG TAB PO SCH (08:57)
[2020-04-07] MEDS: Metamucil PACK PO SCH (08:58)
--- NOTE | 2020-04-07 09:23 | PRG ---
DATE OF SERVICE: 04/07/2020 I visited the patient at the bedside. She was not having any overnight events. She reports she has had some improvement in her back pain. She has been afebrile overnight and her white count is trending down. She has extensive diskitis and osteomyelitis that extend from T10 to the sacrum as well as infectious process in bilateral psoas muscles and the right hip region. She continues to not have any neurologic manifestations on exam this morning. She is neurologically intact on my exam. The patient's history is quite complicated. We will defer ongoing antibiotic regimen to Dr. Sam's team. She continues to be neurologically intact, so we are not planning any acute neurosurgical intervention at this time. Please reach out to Neurosurgery for additional questions or concerns. Job ID: [id number] MTDD
[2020-04-07] MEDS: Promethazine HCl 25 MG in Sodium Chloride 0.9% 50 ML IVPB PRN (18:04)
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
[2020-04-07] MEDS: Acetaminophen 325 MG TAB PO PRN (18:44)
[2020-04-08] MEDS: Cefepime 2 GM in Sodium Chloride 0.9% 100 ML IVPB SCH ×2 (04:54→16:12)
[2020-04-08] MEDS: HYDROcodone/Acetaminophen 5/325 mg Tablet PO PRN ×3 (05:07→19:59)
[2020-04-08] MEDS: Vancomycin 1.5 GRAM/300 ML BAG 1.5 GM in Premix Bag 1 BAG IVPB SCH ×2 (06:18→18:03)
[2020-04-08 06:20] LABS: BUN (Urea Nitrogen) 8 mg/dL (9.8-20.1); Calc. Creatinine Clearance 186 mL/min (70-130); Calcium 7.8 mg/dL (7.8-10.44); Carbon Dioxide 17 mmol/L (22-29); Chloride 110 mmol/L (98-107); Glucose 90 mg/dL (70-105); Potassium 4.7 mmol/L (3.5-5.1); Sodium 136 mmol/L (136-145)
[2020-04-08 06:52] LABS: #Eosinphils 0.3 thou/uL (0.0-0.7); #Lymphocytes 1.3 thou/uL (1.20-3.40); #Monocytes 0.8 thou/uL (0.11-0.59); #Neutrophils 5.2 thou/uL (1.40-6.50); %Basophils 0.4 % (0.0-1.0); %Eosinophils 4.1 % (0.0-10.0); %Lymphocytes 17.5 % (21.0-51.0); %Monocytes 10.6 % (0.0-10.0); %Neutrophils 67.5 % (42.0-75.0); Mean Corpuscular HGB CONC 31.9 g/dL (32.0-36.0); Mean Corpuscular Hemoglobin 29.2 pg (27.0-31.0); Mean Corpuscular Volume 91.5 fL (78.0-98.0); Mean Platelet Volume 5.8 fL (7.4-10.4); Platelet Count 677 thou/uL (130-400); RBC Distribution Width 14.7 % (11.5-14.5); Red Blood Cell (RBC) Count 2.72 mill/uL (4.20-5.40); White Blood Cell (WBC) Count 7.7 thou/uL (4.8-10.8)
[2020-04-08 07:18] LABS: Anion Gap 14 mmol/L (10-20)
[2020-04-08] MEDS ORDERED: Senokot S 8.6-50 MG TAB PO SCH (09:00)
[2020-04-08] MEDS: Metamucil PACK PO SCH (09:01)
[2020-04-08] MEDS: Folic Acid 1 MG TAB PO SCH (09:03)
[2020-04-08] MEDS: Ferrous Sulfate 325 MG TAB PO SCH ×2 (09:03→16:12)
[2020-04-08] MEDS: Docusate 100 MG CAP PO SCH (09:03)
[2020-04-08] MEDS: Saccharomyces boulardii 250 MG CAP PO SCH (09:03)
[2020-04-08] MEDS: Potassium Chloride 20 MEQ TAB PO SCH (09:13)
--- NOTE | 2020-04-08 14:02 | PDOC.HOSPP ---
- Subjective Encounter Date: 04/08/20 Encounter Time: 10:00 Subjective: Patient seen and examined for sepsis. Continues to have low back pain. No new focal deficit. Denies any fever or chills. No nausea or vomiting. - Objective Vital Signs & Weight: Vital Signs (12 hours) Temp Pulse Resp BP Pulse Ox 04/08/20 11:27 98.1 F 88 18 139/93 H 98 04/08/20 08:00 97 04/08/20 07:33 98.4 F 88 20 140/93 H 97 04/08/20 05:15 98.6 F Weight Admit Weight 220 lb Weight 230 lb 1.6 oz I&O: 04/07/20 04/08/20 04/09/20 06:59 06:59 06:59 Intake Total 1800 700 Output Total 1500 700 Balance 300 0 Result Diagrams: 04/08/20 06:09 04/08/20 05:14 Additional Labs: Abnormal Lab Results - Last 48 hrs 04/04/20 08:36: Crossmatch See Detail 04/07/20 05:22: BUN 6 L, Creatinine 0.52 L, Calcium 7.7 L 04/07/20 05:22: RBC 2.68 L, Hgb 8.3 L, Hct 24.8 L, MCH 31.1 H, Plt Count 575 H, MPV 6.6 L, Lymphocytes % 17.9 L, Monocytes % 10.8 H, Monocytes # 0.9 H 04/08/20 05:14: Chloride 110 H, Carbon Dioxide 17 L, BUN 8 L, Creatinine 0.53 L 04/08/20 06:09: RBC 2.72 L, Hgb 8.0 L, Hct 24.9 L, MCHC 31.9 L, RDW 14.7 H, Plt Count 677 H, MPV 5.8 L, Lymphocytes % 17.5 L, Monocytes % 10.6 H, Monocytes # 0.8 H Microbiology - Entire Visit 04/03/20 16:05 Synovial Fluid Culture - Abscess Body Fluid Culture - Preliminary 04/06/20 18:06 Stool Stool Occult Blood (JULES) - Final 04/02/20 16:11 Venous blood - Right Arm Blood Culture - Final Methicillin resistant S.aureus 04/02/20 16:11 Venous blood - Right Hand Blood Culture - Final Methicillin resistant S.aureus 04/02/20 18:26 Urine voided Urine Culture - Final NO GROWTH AT 48 HOURS Radiology Reviewed by me: Yes (CT scan of pelvisreviewed) Hospitalist ROS - Review of Systems Respiratory: denies: cough, dry, shortness of breath, hemoptysis, SOB with excertion, pleuritic pain, sputum, wheezing, other Cardiovascular: denies: chest pain, palpitations, orthopnea, paroxysmal noc. dyspnea, edema, light headedness, other - Medication Medications: Active Medications Generic Name Dose Route Start Last Admin Trade Name Freq PRN Reason Stop Dose Admin Acetaminophen 650 mg 04/03/20 11:59 04/07/20 18:44 Acetaminophen 325 Mg Tab PO 650 mg Q4H PRN Administration Headache/Fever or Pain Acetaminophen/Codeine Phosphate 1 tab 04/03/20 17:38 04/03/20 19:20 Acetaminophen/Codeine 30-300mg Tablet PO 1 tab Q4H PRN Administration Moderate Pain (4-6) Hydrocodone Bitart/Acetaminophen 1 tab 04/03/20 21:37 04/08/20 13:14 Hydrocodone/Acetaminophen 5/325 Mg Tablet PO 1 tab Q4H PRN Administration Pain Docusate Sodium 100 mg 04/05/20 09:00 04/08/20 09:03 Docusate 100 Mg Cap PO 100 mg BID CHARLIE Administration Ferrous Sulfate 325 mg 04/04/20 08:00 04/08/20 09:03 Ferrous Sulfate 325 Mg Tab PO 325 mg BID-WM CHARLIE Administration Folic Acid 1 mg 04/04/20 09:00 04/08/20 09:03 Folic Acid 1 Mg Tab PO 1 mg DAILY CHARLIE Administration Vancomycin HCl 1.5 gm/ Device 300 mls @ 200 mls/hr 04/03/20 18:00 04/08/20 06:18 IVPB 300 mls 0600,1800 CHARLIE Administration Promethazine HCl 25 mg/ Sodium 51 mls @ 204 mls/hr 04/03/20 17:38 04/07/20 18:04 Chloride IVPB 51 mls Q4H PRN Administration Nausea Cefepime HCl 2 gm/ Sodium 100 mls @ 200 mls/hr 04/07/20 05:00 04/08/20 04:54 Chloride IVPB 100 mls 0500,1700 CHARLIE Administration Psyllium Hydrophilic Mucilloid 1 pk 04/05/20 09:00 04/08/20 09:01 Metamucil Pack PO 1 pk QAM CHARLIE Administration Saccharomyces Boulardii 250 mg 04/08/20 09:00 04/08/20 09:03 Saccharomyces Boulardii 250 Mg Cap PO 250 mg DAILY CHARLIE Administration Senna/Docusate Sodium 1 tab 04/08/20 09:00 04/08/20 09:03 Senokot S 8.6-50 Mg Tab PO 1 tab BID CHARLIE Administration Hospitalist Exam Vitals: Vital Signs (12 hours) Temp Pulse Resp BP Pulse Ox 04/08/20 11:27 98.1 F 88 18 139/93 H 98 04/08/20 08:00 97 04/08/20 07:33 98.4 F 88 20 140/93 H 97 04/08/20 05:15 98.6 F Weight Admit Weight 220 lb Weight 230 lb 1.6 oz General Appearance: awake alert Neck: supple, no JVD Heart: RRR, no gallops Respiratory: no wheezes, no ronchi Gastrointestinal: soft, non-distended Extremities: no cyanosis, no clubbing Neurological: no new deficit Psychiatric: normal affect, A&O x 3 Hosp A/P - Plan DVT proph w/lovenox, DVT proph w/SCDs 60-year-old female admitted on 04/[address] Stanford for sepsis. Hospitalist team is covering for Dr. Stanford for 04/08 and 04/09. Severe sepsis due to MRSA with bacteremia/bilateral psoas muscle abscess with large right hip fluid collectionPOA Plan: PICC line has been placed. Will continue vancomycin with cefepime. Monitor vancomycin level. Will add probiotics. Right hip collection was drained on 04/03. Patient had lactic acidosis on admission that has improved. Acute on chronic low back pain due to above Plan: Continue current pain regimen Constipation Plan: Add Senokot-S with MiraLAX as needed. Discontinue Colace Hypokalemia Plan: Replaced. Will discontinue potassium supplementation as potassium is 4.7 today Folic acid deficiency Plan: Continue folic acid supplementation Obesity with a BMI 35 Lifestyle modification emphasized Anemia probably due to chronic disease Other issues per previous note Discharge planning Will add physical therapy and Occupational Therapy consultation. Await long- term antibiotic recommendation by ID. Patient has PICC line placed this admission
[2020-04-08] MEDS ORDERED: Polyethylene Glycol 3350 17 GM Packet PO PRN (14:05)
[2020-04-08] MEDS: Acetaminophen/Codeine 30-300mg Tablet PO PRN ×2 (15:12→21:12)
[2020-04-08] MEDS: Promethazine HCl 25 MG in Sodium Chloride 0.9% 50 ML IVPB PRN (15:13)
[2020-04-08] MEDS: Senokot S 8.6-50 MG TAB PO SCH (19:58)
[2020-04-09] MEDS: Acetaminophen/Codeine 30-300mg Tablet PO PRN ×2 (01:57→18:50)
[2020-04-09] MEDS: Cefepime 2 GM in Sodium Chloride 0.9% 100 ML IVPB SCH ×2 (05:13→16:53)
[2020-04-09 05:33] LABS: Vancomycin, Trough 17.9 ug/mL
[2020-04-09] MEDS: Vancomycin 1.5 GRAM/300 ML BAG 1.5 GM in Premix Bag 1 BAG IVPB SCH ×2 (06:05→18:43)
[2020-04-09] MEDS: NS 0.9% w/ 20 MEQ KCL 1,000 ML IV SCH (06:05)
[2020-04-09] MEDS: Ferrous Sulfate 325 MG TAB PO SCH ×2 (08:41→16:53)
[2020-04-09] MEDS: Senokot S 8.6-50 MG TAB PO SCH (08:42)
[2020-04-09] MEDS: Saccharomyces boulardii 250 MG CAP PO SCH (08:42)
[2020-04-09] MEDS: Folic Acid 1 MG TAB PO SCH (08:43)
[2020-04-09] MEDS: Metamucil PACK PO SCH (08:43)
[2020-04-09] MEDS: HYDROcodone/Acetaminophen 5/325 mg Tablet PO PRN ×3 (08:45→16:52)
--- NOTE | 2020-04-09 12:13 | PDOC.HOSPP ---
- Subjective Encounter Date: 04/09/20 Encounter Time: 09:15 Subjective: Patient seen and examined for sepsis due to MRSA infection. Back pain unchanged. Denies any fever, chills, nausea, malaise or diarrhea. Had bowel movement yesterday. - Objective Vital Signs & Weight: Vital Signs (12 hours) Temp Pulse Resp BP Pulse Ox 04/09/20 11:51 98.2 F 04/09/20 08:00 95 04/09/20 07:44 98.1 F 84 20 124/86 95 Weight Admit Weight 220 lb Weight 230 lb 1.6 oz I&O: 04/08/20 04/09/20 04/10/20 06:59 06:59 06:59 Intake Total 1951 Output Total 1900 Balance 51 Result Diagrams: 04/08/20 06:09 04/08/20 05:14 Additional Labs: Abnormal Lab Results - Last 48 hrs 04/04/20 08:36: Crossmatch See Detail 04/08/20 05:14: Chloride 110 H, Carbon Dioxide 17 L, BUN 8 L, Creatinine 0.53 L 04/08/20 06:09: RBC 2.72 L, Hgb 8.0 L, Hct 24.9 L, MCHC 31.9 L, RDW 14.7 H, Plt Count 677 H, MPV 5.8 L, Lymphocytes % 17.5 L, Monocytes % 10.6 H, Monocytes # 0.8 H Microbiology - Entire Visit 04/03/20 16:05 Synovial Fluid Culture - Abscess Body Fluid Culture - Preliminary 04/06/20 18:06 Stool Stool Occult Blood (JULES) - Final 04/02/20 16:11 Venous blood - Right Arm Blood Culture - Final Methicillin resistant S.aureus 04/02/20 16:11 Venous blood - Right Hand Blood Culture - Final Methicillin resistant S.aureus 04/02/20 18:26 Urine voided Urine Culture - Final NO GROWTH AT 48 HOURS Radiology Reviewed by me: Yes (CT of the pelvis reviewed) Hospitalist ROS - Review of Systems Cardiovascular: denies: chest pain, palpitations, orthopnea, paroxysmal noc. dyspnea, edema, light headedness, other Gastrointestinal: denies: nausea, vomiting, abdominal pain, diarrhea, constipation, melena, hematochezia, other - Medication Medications: Active Medications Generic Name Dose Route Start Last Admin Trade Name Freq PRN Reason Stop Dose Admin Acetaminophen 650 mg 04/03/20 11:59 04/07/20 18:44 Acetaminophen 325 Mg Tab PO 650 mg Q4H PRN Administration Headache/Fever or Pain Acetaminophen/Codeine Phosphate 1 tab 04/03/20 17:38 04/09/20 01:57 Acetaminophen/Codeine 30-300mg Tablet PO 1 tab Q4H PRN Administration Moderate Pain (4-6) Hydrocodone Bitart/Acetaminophen 1 tab 04/03/20 21:37 04/09/20 08:45 Hydrocodone/Acetaminophen 5/325 Mg Tablet PO 1 tab Q4H PRN Administration Pain Ferrous Sulfate 325 mg 04/04/20 08:00 04/09/20 08:41 Ferrous Sulfate 325 Mg Tab PO 325 mg BID-WM CHARLIE Administration Folic Acid 1 mg 04/04/20 09:00 04/09/20 08:43 Folic Acid 1 Mg Tab PO 1 mg DAILY CHARLIE Administration Vancomycin HCl 1.5 gm/ Device 300 mls @ 200 mls/hr 04/03/20 18:00 04/09/20 06:05 IVPB 300 mls 0600,1800 CHARLIE Administration Promethazine HCl 25 mg/ Sodium 51 mls @ 204 mls/hr 04/03/20 17:38 04/08/20 15:13 Chloride IVPB 51 mls Q4H PRN Administration Nausea Cefepime HCl 2 gm/ Sodium 100 mls @ 200 mls/hr 04/07/20 05:00 04/09/20 05:13 Chloride IVPB 100 mls 0500,1700 CHARLIE Administration Potassium Chloride/Sodium Chloride 1,000 mls @ 0 mls/hr 04/07/20 12:15 04/09/20 06:05 Ns 0.9% W/ 20 Meq Kcl IV 1,000 mls .Q0M CHARLIE Administration KVO Psyllium Hydrophilic Mucilloid 1 pk 04/05/20 09:00 04/09/20 08:43 Metamucil Pack PO 1 pk QAM CHARLIE Administration Saccharomyces Boulardii 250 mg 04/08/20 09:00 04/09/20 08:42 Saccharomyces Boulardii 250 Mg Cap PO 250 mg DAILY CHARLIE Administration Senna/Docusate Sodium 2 tab 04/08/20 21:00 04/09/20 08:42 Senokot S 8.6-50 Mg Tab PO 2 tab BID CHARLIE Administration Hospitalist Exam Vitals: Vital Signs (12 hours) Temp Pulse Resp BP Pulse Ox 04/09/20 11:51 98.2 F 04/09/20 08:00 95 04/09/20 07:44 98.1 F 84 20 124/86 95 Weight Admit Weight 220 lb Weight 230 lb 1.6 oz General Appearance: NAD, awake alert Neck: supple, no JVD Heart: RRR, no gallops Respiratory: no wheezes, no ronchi Gastrointestinal: soft, non-tender, normal bowel sounds Extremities: no cyanosis Neurological: no new deficit Musculoskeletal: generalized weakness Hosp A/P - Plan DVT proph w/SCDs 60-year-old female admitted on 04/[address] Stanford for sepsis. Hospitalist team is covering for Dr. Stanford for 04/08 and 04/09. Severe sepsis due to MRSA with bacteremia/bilateral psoas muscle abscess with large right hip fluid collection. Right hip collection was drained on 04/03. Patient had lactic acidosis on admission that has improved. PICC line has been placed Plan: Continue vancomycin with cefepime. Monitor vancomycin level. Continue probiotics. Acute on chronic low back pain due to above Plan: Continue current pain regimen Constipationresolved Plan: DC Senokot-S. Continue MiraLAX as needed. Restart Colace Hypokalemia Plan: Replaced. Potassium supplementation discontinued since potassium was 4.7 yesterday Folic acid deficiency Plan: Continue folic acid supplementation Obesity with a BMI 35 Lifestyle modification emphasized Anemia probably due to chronic disease Other issues per previous note Discharge planning Await PT OT. Await long-term antibiotic recommendation by ID. PICC line placed this admission. Disposition plan per Dr. Stanford. Dr. Stanford to resume care on 04/10.
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
[2020-04-09] MEDS: Docusate 100 MG CAP PO SCH (20:47)
[2020-04-10] MEDS ORDERED: HYDROcodone/Acetaminophen 5/325 mg Tablet ONE ×2 (03:22→14:30)
[2020-04-10] MEDS ORDERED: Cefepime 2 GM VIAL ONE (05:39)
[2020-04-10] MEDS ORDERED: Docusate 100 MG CAP ONE (07:37)
[2020-04-10] MEDS ORDERED: Ferrous Sulfate 325 MG TAB ONE (07:37)
[2020-04-10] MEDS ORDERED: Saccharomyces boulardii 250 MG CAP ONE (07:38)
[2020-04-10] MEDS ORDERED: Folic Acid 1 MG TAB ONE (07:39)
[2020-04-10] MEDS: Ferrous Sulfate 325 MG TAB PO SCH ×2 (12:44→16:21)
[2020-04-10] MEDS: Cefepime 2 GM in Sodium Chloride 0.9% 100 ML IVPB SCH ×2 (12:44→16:21)
[2020-04-10] MEDS: Vancomycin 1.5 GRAM/300 ML BAG 1.5 GM in Premix Bag 1 BAG IVPB SCH ×2 (12:44→18:20)
[2020-04-10] MEDS: Folic Acid 1 MG TAB PO SCH (12:45)
[2020-04-10] MEDS: Metamucil PACK PO SCH (12:45)
[2020-04-10] MEDS: Docusate 100 MG CAP PO SCH ×2 (12:45→20:47)
[2020-04-10] MEDS: Saccharomyces boulardii 250 MG CAP PO SCH (12:45)
[2020-04-10] MEDS: HYDROcodone/Acetaminophen 5/325 mg Tablet PO PRN ×2 (14:39→20:47)
--- NOTE | 2020-04-10 16:17 | PRG ---
DATE OF SERVICE: 04/10/2020 This is Leonel Devries PA-C dictating a report for Ariel Pastor MD. SUBJECTIVE: We have seen the patient throughout her stay. She has a right [place]. We were asked by Dr. Nieto to re-evaluate hip. We spoke with the patient this morning, myself and Dr. Pastor, and she has had a long history with that right hip, which is currently [place]. She is hoping that she can get to [place] in the future and do a hip revision. The patient currently is not complaining of any hip pain. No current pain into the groin and is able to move that right lower extremity fairly well. There has been no dramatic worsening of her symptoms and she has been at the hospital. She also has an epidural abscess, and she has had CT-guided percutaneous biopsies, cultures which do not just grow out any positive cultures. She did have some WBCs and gram-negative rods, but cultures are still negative. She does have MRSA in her blood cultures. OBJECTIVE: VITAL SIGNS: Stable, temperature was 99, even. LABORATORY DATA: No CBC done since the , but her white blood cell count at that time was 7.7. As for the right hip, Dr. Pastor moved the hip around and the patient had no pain whatsoever. ASSESSMENT: Stable exam. PLAN: I spoke with the patient, myself and Dr. Pastor. She has no pain. At this point, there is no surgical intervention to be offered. If the patient starts having more pain in that hip, then it may be reasonable to do an I and D/washout, but with her epidural abscess and MRSA in her blood cultures, I think the reasonable path would be to continue IV antibiotics. We discussed this with the patient and she is amenable with this plan. Job ID: [id number]
[2020-04-10] MEDS: Acetaminophen 325 MG TAB PO PRN (16:21)
[2020-04-10] MEDS: Acetaminophen/Codeine 30-300mg Tablet PO PRN (22:29)
[2020-04-11] MEDS: HYDROcodone/Acetaminophen 5/325 mg Tablet PO PRN ×4 (00:43→20:55)
[2020-04-11] MEDS: Cefepime 2 GM in Sodium Chloride 0.9% 100 ML IVPB SCH ×2 (04:53→15:32)
[2020-04-11] MEDS: Acetaminophen/Codeine 30-300mg Tablet PO PRN ×4 (04:53→22:15)
[2020-04-11 05:42] LABS: Anion Gap 12 mmol/L (10-20); BUN (Urea Nitrogen) 7 mg/dL (9.8-20.1); CRP (Inflammatory) 8.53 mg/dL (= or < 0.5); Calc. Creatinine Clearance 205 mL/min (70-130); Calcium 7.7 mg/dL (7.8-10.44); Carbon Dioxide 20 mmol/L (22-29); Chloride 109 mmol/L (98-107); Glucose 100 mg/dL (70-105); Potassium 4.2 mmol/L (3.5-5.1); Sodium 137 mmol/L (136-145)
[2020-04-11] MEDS: Vancomycin 1.5 GRAM/300 ML BAG 1.5 GM in Premix Bag 1 BAG IVPB SCH ×2 (06:01→17:57)
[2020-04-11 07:02] LABS: #Eosinphils 0.5 thou/uL (0.0-0.7); #Lymphocytes 1.6 thou/uL (1.20-3.40); #Monocytes 0.7 thou/uL (0.11-0.59); #Neutrophils 4.7 thou/uL (1.40-6.50); %Basophils 0.6 % (0.0-1.0); %Eosinophils 6.2 % (0.0-10.0); %Lymphocytes 21.7 % (21.0-51.0); %Monocytes 8.9 % (0.0-10.0); %Neutrophils 62.7 % (42.0-75.0); Anisocytosis SLIGHT = 6-15 cells (100X) (0-5/hpf); Hemoglobin 8.3 g/dL (12.0-16.0); MDiff Complete? YES; Mean Corpuscular HGB CONC 31.7 g/dL (32.0-36.0); Mean Corpuscular Hemoglobin 29.3 pg (27.0-31.0); Mean Corpuscular Volume 92.6 fL (78.0-98.0); Mean Platelet Volume 6.7 fL (7.4-10.4); Platelet Count 403 thou/uL (130-400); RBC Distribution Width 15.6 % (11.5-14.5); Red Blood Cell (RBC) Count 2.84 mill/uL (4.20-5.40); White Blood Cell (WBC) Count 7.5 thou/uL (4.8-10.8)
[2020-04-11] MEDS: Folic Acid 1 MG TAB PO SCH (07:59)
[2020-04-11] MEDS: Saccharomyces boulardii 250 MG CAP PO SCH (07:59)
[2020-04-11] MEDS: Docusate 100 MG CAP PO SCH ×2 (07:59→21:00)
[2020-04-11] MEDS: Ferrous Sulfate 325 MG TAB PO SCH ×2 (07:59→15:32)
[2020-04-11] MEDS: Metamucil PACK PO SCH (07:59)
[2020-04-11] MEDS: NS 0.9% w/ 20 MEQ KCL 1,000 ML IV SCH (10:56)
[2020-04-11 12:57] VITALS: BMI 34.9
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
--- NOTE | 2020-04-11 16:55 | ULT ---
BILATERAL VENOUS DOPPLER ULTRASOUND: History: Right lower extremity edema. Technique: Grayscale, color flow, and spectral doppler imaging of the deep venous systems of the lowe r extremities were performed bilaterally. FINDINGS: There is good compression, augmentation, and flow within the common femoral, femoral, dependent femor al, popliteal, posterior tibial, and greater saphenous veins. IMPRESSION: No evidence of DVT in either lower extremity. POS: MILOA
[2020-04-11 17:44] LABS: Vancomycin, Trough 18.4 ug/mL
[2020-04-11] MEDS ORDERED: HYDROcodone/Acetaminophen 5/325 mg Tablet PO PRN (19:22)
[2020-04-12] MEDS: HYDROcodone/Acetaminophen 5/325 mg Tablet PO PRN ×4 (01:06→21:08)
[2020-04-12] MEDS: Cefepime 2 GM in Sodium Chloride 0.9% 100 ML IVPB SCH ×2 (04:35→16:30)
[2020-04-12] MEDS: Acetaminophen/Codeine 30-300mg Tablet PO PRN ×3 (04:53→16:31)
[2020-04-12] MEDS: Vancomycin 1.5 GRAM/300 ML BAG 1.5 GM in Premix Bag 1 BAG IVPB SCH ×2 (05:24→18:15)
[2020-04-12] MEDS: Folic Acid 1 MG TAB PO SCH (08:51)
[2020-04-12] MEDS: Saccharomyces boulardii 250 MG CAP PO SCH (08:52)
[2020-04-12] MEDS: Metamucil PACK PO SCH (08:52)
[2020-04-12] MEDS: Ferrous Sulfate 325 MG TAB PO SCH ×2 (08:52→16:32)
[2020-04-12] MEDS: Docusate 100 MG CAP PO SCH ×2 (08:52→21:16)
[2020-04-13] MEDS: Cefepime 2 GM in Sodium Chloride 0.9% 100 ML IVPB SCH ×2 (04:20→16:48)
[2020-04-13] MEDS: Acetaminophen/Codeine 30-300mg Tablet PO PRN ×2 (04:22→12:49)
[2020-04-13] MEDS: NS 0.9% w/ 20 MEQ KCL 1,000 ML IV SCH (04:23)
[2020-04-13] MEDS: Vancomycin 1.5 GRAM/300 ML BAG 1.5 GM in Premix Bag 1 BAG IVPB SCH (05:34)
[2020-04-13] MEDS: Folic Acid 1 MG TAB PO SCH (08:09)
[2020-04-13] MEDS: Docusate 100 MG CAP PO SCH ×2 (08:09→20:18)
[2020-04-13] MEDS: Saccharomyces boulardii 250 MG CAP PO SCH (08:09)
[2020-04-13] MEDS: Ferrous Sulfate 325 MG TAB PO SCH ×2 (08:09→16:48)
[2020-04-13] MEDS: HYDROcodone/Acetaminophen 5/325 mg Tablet PO PRN ×3 (08:10→20:17)
[2020-04-13] MEDS: Metamucil PACK PO SCH (08:11)
[2020-04-13] MEDS: Vancomycin HCl 1.5 GM in Sodium Chloride 0.9% 250 ML 300 ML IVPB SCH (18:17)
[2020-04-14] MEDS: Acetaminophen 325 MG TAB PO PRN ×2 (04:43→15:44)
[2020-04-14] MEDS: Cefepime 2 GM in Sodium Chloride 0.9% 100 ML IVPB SCH ×2 (04:46→17:13)
[2020-04-14] MEDS: Vancomycin HCl 1.5 GM in Sodium Chloride 0.9% 250 ML 300 ML IVPB SCH ×2 (05:25→20:10)
[2020-04-14 06:15] LABS: #Eosinphils 0.3 thou/uL (0.0-0.7); #Lymphocytes 1.5 thou/uL (1.20-3.40); #Monocytes 0.5 thou/uL (0.11-0.59); #Neutrophils 4.3 thou/uL (1.40-6.50); %Basophils 0.7 % (0.0-1.0); %Eosinophils 4.4 % (0.0-10.0); %Monocytes 8.2 % (0.0-10.0); %Neutrophils 64.7 % (42.0-75.0); Hemoglobin 8.5 g/dL (12.0-16.0); Mean Corpuscular HGB CONC 32.3 g/dL (32.0-36.0); Mean Corpuscular Hemoglobin 29.4 pg (27.0-31.0); Mean Platelet Volume 5.6 fL (7.4-10.4); Platelet Count 458 thou/uL (130-400); RBC Distribution Width 15.1 % (11.5-14.5); Red Blood Cell (RBC) Count 2.88 mill/uL (4.20-5.40); White Blood Cell (WBC) Count 6.6 thou/uL (4.8-10.8)
[2020-04-14 06:38] LABS: Anion Gap 10 mmol/L (10-20); BUN (Urea Nitrogen) 8 mg/dL (9.8-20.1); CRP (Inflammatory) 8.25 mg/dL (= or < 0.5); Calc. Creatinine Clearance 190 mL/min (70-130); Calcium 7.8 mg/dL (7.8-10.44); Carbon Dioxide 22 mmol/L (22-29); Chloride 108 mmol/L (98-107); Glucose 101 mg/dL (70-105); Potassium 3.6 mmol/L (3.5-5.1); Sodium 136 mmol/L (136-145)
[2020-04-14] MEDS: Saccharomyces boulardii 250 MG CAP PO SCH (08:20)
[2020-04-14] MEDS: Folic Acid 1 MG TAB PO SCH (08:20)
[2020-04-14] MEDS: HYDROcodone/Acetaminophen 5/325 mg Tablet PO PRN ×3 (08:21→17:13)
[2020-04-14] MEDS: Ferrous Sulfate 325 MG TAB PO SCH ×2 (08:21→17:14)
[2020-04-14] MEDS: Docusate 100 MG CAP PO SCH ×2 (08:22→20:10)
[2020-04-14] MEDS: Metamucil PACK PO SCH (08:22)
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
[2020-04-14 18:53] LABS: Vancomycin, Trough 16.8 ug/mL
[2020-04-15] MEDS: HYDROcodone/Acetaminophen 5/325 mg Tablet PO PRN (01:14)
[2020-04-15] MEDS: Cefepime 2 GM in Sodium Chloride 0.9% 100 ML IVPB SCH ×2 (04:57→16:18)
[2020-04-15] MEDS: Vancomycin 1.5 GRAM/300 ML BAG 1.5 GM in Premix Bag 300 BAG IVPB SCH ×2 (06:11→18:40)
[2020-04-15] MEDS: Docusate 100 MG CAP PO SCH (09:10)
[2020-04-15] MEDS: Folic Acid 1 MG TAB PO SCH (09:10)
[2020-04-15] MEDS: Ferrous Sulfate 325 MG TAB PO SCH ×2 (09:10→16:18)
[2020-04-15] MEDS: Saccharomyces boulardii 250 MG CAP PO SCH (09:11)
[2020-04-15] MEDS: Metamucil PACK PO SCH (09:11)
[2020-04-15] MEDS: Acetaminophen 325 MG TAB PO PRN (11:12)
[2020-04-15 19:29] VITALS: BP 129/84; TEMP 99
== END 2020-04-15 19:13 | DRG 871 ==
LOC: ERS 14:05 → T4-B 18:23 → OBSVTOIN 18:23
PROVIDERS: ADMIT Specialist; ATTEND Internal Medicine
PROC: 02HV33Z Insertion of Infusion Device into Superior Vena Cava, Percutaneous Approach (ICD-10-PCS; 2020-04-06)
PROC: B548ZZA Ultrasonography of Superior Vena Cava, Guidance (ICD-10-PCS; 2020-04-06)
PROC: 0S9930Z Drainage of Right Hip Joint with Drainage Device, Percutaneous Approach (ICD-10-PCS; principal; 2020-04-10)
DX: A41.02 Sepsis due to Methicillin resistant Staphylococcus aureus (principal); G06.2 Extradural and subdural abscess, unspecified; L02.415 Cutaneous abscess of right lower limb; M60.003 Infective myositis, unspecified right leg; E87.2 Acidosis; K59.00 Constipation, unspecified; D63.8 Anemia in other chronic diseases classified elsewhere; E66.9 Obesity, unspecified; E53.8 Deficiency of other specified B group vitamins; R65.20 Severe sepsis without septic shock; Z20.822 Contact with and (suspected) exposure to COVID-19; E87.6 Hypokalemia; Z86.711 Personal history of pulmonary embolism; Z98.1 Arthrodesis status; Z88.1 Allergy status to other antibiotic agents; Z68.35 Body mass index [BMI] 35.0-35.9, adult
CPT/HCPCS: 0240U; 36415; 36569; 71045; 72158; 72192; 74177; 77002; 80048; 80053; 80202; 81003; 81015; 82274; 82607; 82746; 82945; 83540; 83550; 83605; 83690; 84157; 85025; 85060; 85610; 85652; 85730; 86140; 86674; 86850; 86900; 86901; 87040; 87070; 87077; 87086; 87186; 87205; 87324; 87338; 87449; 89051; 89060; 93306; 93970; 96365; 96367; C1729; C1751; J0692; J1644; J2250; J2405; J2550; J3010; J3370; J3480; J3490; J7050; Q9967

== ENCOUNTER 2020-05-13 15:47 | Inpatient (IN) | payer BC ==
[~2020-05-13 15:47] MED LIST changes: -Iopamidol-370 76% 500 ML 1 ML ONE; +Magnevist 469MG/ML 20 ML VIAL ONE
[2020-05-13 16:35] LABS: #Basophils 0.1 thou/uL (0.0-0.2); #Eosinphils 0.1 thou/uL (0.0-0.7); #Lymphocytes 2.3 thou/uL (1.20-3.40); #Monocytes 0.5 thou/uL (0.11-0.59); #Neutrophils 8.5 thou/uL (1.40-6.50); %Basophils 0.7 % (0.0-1.0); %Eosinophils 1.2 % (0.0-10.0); %Monocytes 3.9 % (0.0-10.0); %Neutrophils 74.1 % (42.0-75.0); Hemoglobin 13.2 g/dL (12.0-16.0); Mean Corpuscular HGB CONC 32.2 g/dL (32.0-36.0); Mean Corpuscular Hemoglobin 28.9 pg (27.0-31.0); Mean Corpuscular Volume 89.7 fL (78.0-98.0); Mean Platelet Volume 6.7 fL (7.4-10.4); Platelet Count 535 thou/uL (130-400); RBC Distribution Width 14.5 % (11.5-14.5); Red Blood Cell (RBC) Count 4.56 mill/uL (4.20-5.40); White Blood Cell (WBC) Count 11.5 thou/uL (4.8-10.8)
[2020-05-13 16:56] LABS: ALT (SGPT) 197 U/L (8-55); AST (SGOT) 1000 U/L (5-34); Albumin 3.6 g/dL (3.5-5.0); Alkaline Phosphatase 124 U/L (40-110); Anion Gap 23 mmol/L (10-20); BUN (Urea Nitrogen) 23 mg/dL (9.8-20.1); Bilirubin, Total 0.8 mg/dL (0.2-1.2); Calc. Creatinine Clearance 0 mL/min (70-130); Calcium 9.2 mg/dL (7.8-10.44); Carbon Dioxide 22 mmol/L (22-29); Chloride 94 mmol/L (98-107); Globulin 4.9 g/dL (2.4-3.5); Glucose 104 mg/dL (70-105); Potassium 4.5 mmol/L (3.5-5.1); Protein, Total 8.5 g/dL (6.0-8.3); Sodium 134 mmol/L (136-145)
[2020-05-13] MEDS ORDERED: Promethazine HCl 25 MG/ML VIAL ONE (17:28)
[2020-05-13] MEDS ORDERED: HYDROcodone/Acetaminophen 5/325 mg Tablet ONE (17:28)
[2020-05-13 19:05] LABS: Bacteria/HPF None Seen HPF (None Seen); Bilirubin Negative (Negative); Blood, Urine 3+ (Negative); Clarity Clear (Clear); Glucose, Urine (Dipstick) Normal (Negative); Ketone, Urine Negative (Negative); Leukocyte Negative Leu/uL (Negative); Nitrite Negative (Negative); Protein, Urine (Dipstick) 100 mg/dL (Neg-Trace); RBC/HPF Greater than 50 HPF (0-3); Specific Gravity, Urine 1.012 (1.002-1.036); Squamous Epithelial 0-3 HPF (0-3); Urobilinogen Normal mg/dL (Less than 2); pH, Urine 7.5 (5.0-9.0)
[2020-05-13 19:28] LABS: Lactic Acid 1.3 mmol/L (0.5-2.2)
[2020-05-13] MEDS ORDERED: Cefepime 2 GM VIAL ONE (22:41)
[2020-05-14] MEDS ORDERED: Vancomycin 1 GM/200 ML BAG ONE (00:18)
[2020-05-14] MEDS ORDERED: Acetaminophen 325 MG TAB PO PRN (01:00)
[2020-05-14] MEDS ORDERED: Ondansetron PF 4 MG/2 ML Vial IVP PRN (01:00)
[2020-05-14] MEDS ORDERED: Ondansetron ODT 4 MG TAB SL PRN (01:00)
[2020-05-14 01:28] VITALS: BMI 29.2
[2020-05-14 08:06] LABS: SARS-CoV-2 PCR by NAA Not Detected (NotDetected)
[2020-05-14] MEDS: HYDROcodone/Acetaminophen 5/325 mg Tablet PO PRN (11:33)
[2020-05-14] MEDS: Cefepime 2 GM in Sodium Chloride 0.9% 100 ML IVPB SCH ×2 (11:35→21:31)
[2020-05-14] MEDS: VANCOMYCIN 1.25 GM/250 ML BAG 1.25 GM in Premix Bag 1 BAG IVPB SCH (12:20)
[2020-05-14 12:40] LABS: Bilirubin Negative (Negative); Blood, Urine 3+ (Negative); Clarity Clear (Clear); Glucose, Urine (Dipstick) Normal (Negative); Ketone, Urine Negative (Negative); Leukocyte Negative Leu/uL (Negative); Nitrite Negative (Negative); Protein, Urine (Dipstick) 100 mg/dL (Neg-Trace); Specific Gravity, Urine 1.015 (1.002-1.036); Urobilinogen Normal mg/dL (Less than 2)
[2020-05-15] MEDS: Cefepime 2 GM in Sodium Chloride 0.9% 100 ML IVPB SCH ×3 (05:07→20:59)
[2020-05-15 06:13] LABS: #Eosinphils 0.5 thou/uL (0.0-0.7); #Lymphocytes 1.8 thou/uL (1.20-3.40); #Monocytes 0.5 thou/uL (0.11-0.59); #Neutrophils 6.9 thou/uL (1.40-6.50); %Basophils 0.2 % (0.0-1.0); %Eosinophils 5.5 % (0.0-10.0); %Lymphocytes 18.2 % (21.0-51.0); %Neutrophils 71.1 % (42.0-75.0); Hemoglobin 11.3 g/dL (12.0-16.0); Mean Corpuscular HGB CONC 33.1 g/dL (32.0-36.0); Mean Corpuscular Hemoglobin 29.6 pg (27.0-31.0); Mean Corpuscular Volume 89.5 fL (78.0-98.0); Mean Platelet Volume 6.8 fL (7.4-10.4); Platelet Count 429 thou/uL (130-400); RBC Distribution Width 14.4 % (11.5-14.5); Red Blood Cell (RBC) Count 3.81 mill/uL (4.20-5.40); White Blood Cell (WBC) Count 9.7 thou/uL (4.8-10.8)
[2020-05-15 06:38] LABS: ALT (SGPT) 219 U/L (8-55); AST (SGOT) 838 U/L (5-34); Albumin 3.2 g/dL (3.5-5.0); Alkaline Phosphatase 98 U/L (40-110); BUN (Urea Nitrogen) 29 mg/dL (9.8-20.1); Bilirubin, Direct 0.3 mg/dL (0.1-0.3); Bilirubin, Total 0.8 mg/dL (0.2-1.2); Calc. Creatinine Clearance 49 mL/min (70-130); Carbon Dioxide 22 mmol/L (22-29); Glucose 89 mg/dL (70-105); Protein, Total 7.3 g/dL (6.0-8.3)
[2020-05-15 06:47] LABS: Anion Gap 17 mmol/L (10-20); Chloride 99 mmol/L (98-107); Sodium 134 mmol/L (136-145)
[2020-05-15] MEDS ORDERED: Metamucil PACK PO PRN (10:09)
[2020-05-15] MEDS: HYDROcodone/Acetaminophen 5/325 mg Tablet PO PRN (10:58)
[2020-05-15] MEDS: Aspirin Chewable 81 MG TAB PO SCH (10:59)
[2020-05-15] MEDS: VANCOMYCIN 1.25 GM/250 ML BAG 1.25 GM in Premix Bag 1 BAG IVPB SCH (13:19)
[2020-05-15] MEDS: Docusate 100 MG CAP PO SCH (20:58)
[2020-05-15] MEDS: Promethazine 25 MG TAB PO PRN (20:58)
[2020-05-16] MEDS: Promethazine 25 MG TAB PO PRN (04:13)
[2020-05-16] MEDS: Cefepime 2 GM in Sodium Chloride 0.9% 100 ML IVPB SCH ×2 (04:13→13:08)
[2020-05-16 06:02] LABS: #Eosinphils 0.7 thou/uL (0.0-0.7); #Lymphocytes 1.6 thou/uL (1.20-3.40); #Monocytes 0.5 thou/uL (0.11-0.59); #Neutrophils 6.1 thou/uL (1.40-6.50); %Basophils 0.3 % (0.0-1.0); %Lymphocytes 18.2 % (21.0-51.0); %Monocytes 5.7 % (0.0-10.0); %Neutrophils 67.8 % (42.0-75.0); Hemoglobin 10.9 g/dL (12.0-16.0); Mean Corpuscular HGB CONC 32.5 g/dL (32.0-36.0); Mean Corpuscular Hemoglobin 28.8 pg (27.0-31.0); Mean Corpuscular Volume 88.4 fL (78.0-98.0); Mean Platelet Volume 6.8 fL (7.4-10.4); Platelet Count 399 thou/uL (130-400); RBC Distribution Width 14.2 % (11.5-14.5); Red Blood Cell (RBC) Count 3.79 mill/uL (4.20-5.40)
[2020-05-16 06:19] LABS: ALT (SGPT) 197 U/L (8-55); AST (SGOT) 627 U/L (5-34); Albumin 3.1 g/dL (3.5-5.0); Alkaline Phosphatase 91 U/L (40-110); Anion Gap 15 mmol/L (10-20); BUN (Urea Nitrogen) 31 mg/dL (9.8-20.1); Bilirubin, Direct 0.3 mg/dL (0.1-0.3); Bilirubin, Total 0.7 mg/dL (0.2-1.2); CRP (Inflammatory) 3.63 mg/dL (= or < 0.5); Calc. Creatinine Clearance 58 mL/min (70-130); Calcium 9.1 mg/dL (7.8-10.44); Carbon Dioxide 22 mmol/L (22-29); Chloride 101 mmol/L (98-107); Glucose 94 mg/dL (70-105); Potassium 3.5 mmol/L (3.5-5.1); Protein, Total 6.9 g/dL (6.0-8.3); Sodium 134 mmol/L (136-145)
[2020-05-16] MEDS ORDERED: Ondansetron PF 4 MG/2 ML Vial IVP SCH (07:45)
[2020-05-16] MEDS: Pantoprazole 40 MG VIAL IVP SCH ×2 (08:14→21:01)
[2020-05-16] MEDS: Docusate 100 MG CAP PO SCH ×2 (10:17→21:00)
[2020-05-16] MEDS: Aspirin Chewable 81 MG TAB PO SCH (10:17)
[2020-05-16] MEDS: Saccharomyces boulardii 250 MG CAP PO SCH (10:18)
[2020-05-16] MEDS: Polyethylene Glycol 3350 17 GM Packet PO SCH (10:18)
[2020-05-16] MEDS: Folic Acid 1 MG TAB PO SCH (10:18)
[2020-05-16] MEDS: Potassium Chloride 10 MEQ TAB PO SCH (10:18)
[2020-05-16] MEDS: Triamterene/Hydrochlorothiazide 37.5 mg/25 mg Tablet PO SCH ×2 (10:19→12:37)
[2020-05-16] MEDS: Losartan 25 MG TAB PO SCH ×2 (10:19→12:37)
[2020-05-16] MEDS: Ondansetron PF 4 MG/2 ML Vial IVP SCH ×2 (11:36→16:57)
[2020-05-16 12:25] LABS: Vancomycin, Trough 30.6 ug/mL
[2020-05-16] MEDS: Promethazine HCl 25 MG in Sodium Chloride 0.9% 100 ML IVPB PRN ×2 (12:31→23:06)
[2020-05-16] MEDS: VANCOMYCIN 1.25 GM/250 ML BAG 1.25 GM in Premix Bag 1 BAG IVPB SCH (12:41)
[2020-05-16] MEDS ORDERED: VANCOMYCIN 1.25 GM/250 ML BAG 1.25 GM in Premix Bag 1 BAG IVPB SCH (12:45)
[2020-05-16] MEDS ORDERED: Sodium Bicarbonate 75 MEQ in Sodium Chloride 0.45% 1,000 ML IV SCH (15:15)
[2020-05-16] MEDS: Sodium Bicarbonate 150 MEQ in Dextrose 5% in Water 850 ML IV SCH ×2 (17:50→23:54)
[2020-05-16] MEDS: cloNIDine 0.1 MG TAB PO SCH (20:59)
[2020-05-16] MEDS: HYDROcodone/Acetaminophen 5/325 mg Tablet PO PRN (21:01)
[2020-05-17] MEDS: Sodium Bicarbonate 150 MEQ in Dextrose 5% in Water 850 ML IV SCH ×5 (03:24→23:17)
[2020-05-17] MEDS: Promethazine HCl 25 MG in Sodium Chloride 0.9% 100 ML IVPB PRN (04:53)
[2020-05-17 07:23] LABS: ALT (SGPT) 175 U/L (8-55); AST (SGOT) 435 U/L (5-34); Albumin 3.1 g/dL (3.5-5.0); Alkaline Phosphatase 87 U/L (40-110); Anion Gap 15 mmol/L (10-20); BUN (Urea Nitrogen) 27 mg/dL (9.8-20.1); Bilirubin, Direct 0.3 mg/dL (0.1-0.3); Bilirubin, Total 0.6 mg/dL (0.2-1.2); Calc. Creatinine Clearance 59 mL/min (70-130); Calcium 8.9 mg/dL (7.8-10.44); Carbon Dioxide 31 mmol/L (22-29); Chloride 95 mmol/L (98-107); Globulin 3.5 g/dL (2.4-3.5); Glucose 120 mg/dL (70-105); Iron 41 ug/dL (50-170); Iron Binding Capacity, Total 149 mcg/dL (265-497); Potassium 3.1 mmol/L (3.5-5.1); Protein, Total 6.6 g/dL (6.0-8.3); Sodium 138 mmol/L (136-145)
[2020-05-17 07:27] LABS: #Eosinphils 0.4 thou/uL (0.0-0.7); #Lymphocytes 1.5 thou/uL (1.20-3.40); #Monocytes 0.7 thou/uL (0.11-0.59); #Neutrophils 5.7 thou/uL (1.40-6.50); %Basophils 0.3 % (0.0-1.0); %Eosinophils 5.4 % (0.0-10.0); %Lymphocytes 18.3 % (21.0-51.0); %Monocytes 7.8 % (0.0-10.0); %Neutrophils 68.2 % (42.0-75.0); Hemoglobin 10.1 g/dL (12.0-16.0); Mean Corpuscular HGB CONC 32.6 g/dL (32.0-36.0); Mean Corpuscular Hemoglobin 28.5 pg (27.0-31.0); Mean Corpuscular Volume 87.6 fL (78.0-98.0); Mean Platelet Volume 6.7 fL (7.4-10.4); Platelet Count 374 thou/uL (130-400); Red Blood Cell (RBC) Count 3.52 mill/uL (4.20-5.40); White Blood Cell (WBC) Count 8.4 thou/uL (4.8-10.8)
[2020-05-17 07:37] LABS: CK (CPK) 5685 U/L (29-168)
[2020-05-17 07:39] LABS: Vancomycin, Random 19.4 ug/mL (See Comment)
[2020-05-17] MEDS: Ondansetron PF 4 MG/2 ML Vial IVP SCH ×3 (08:03→17:33)
[2020-05-17] MEDS: Pantoprazole 40 MG VIAL IVP SCH ×2 (08:07→23:18)
[2020-05-17] MEDS: Triamterene/Hydrochlorothiazide 37.5 mg/25 mg Tablet PO SCH (08:11)
[2020-05-17] MEDS: cloNIDine 0.1 MG TAB PO SCH (08:11)
[2020-05-17] MEDS: Potassium Chloride 10 MEQ TAB PO SCH (08:12)
[2020-05-17] MEDS: Polyethylene Glycol 3350 17 GM Packet PO SCH (08:14)
[2020-05-17] MEDS ORDERED: cloNIDine 0.1 MG TAB PO SCH ×2 (09:35→10:30)
[2020-05-17] MEDS ORDERED: cloNIDine 0.2 MG TAB PO SCH (10:15)
[2020-05-17] MEDS: Potassium Chloride 20 MEQ TAB PO SCH ×2 (10:35→21:04)
[2020-05-17] MEDS: Folic Acid 1 MG TAB PO SCH (10:35)
[2020-05-17] MEDS: Aspirin Chewable 81 MG TAB PO SCH (10:35)
[2020-05-17] MEDS: Docusate 100 MG CAP PO SCH ×2 (10:35→21:03)
[2020-05-17] MEDS: Saccharomyces boulardii 250 MG CAP PO SCH (10:35)
[2020-05-17] MEDS: Amoxicillin/Potassium Clav 500 MG TAB PO SCH ×3 (11:19→23:18)
[2020-05-17] MEDS ORDERED: Lidocaine 1% PF 5 ML VIAL ONE (12:50)
[2020-05-17] MEDS ORDERED: PROPOFOL 200 MG/20 ML VIAL ONE (12:50)
[2020-05-17] MEDS ORDERED: Promethazine HCl 25 MG in Sodium Chloride 0.9% 50 ML IVPB PRN (13:46)
[2020-05-17] MEDS: Vancomycin HCl 750 MG in Sodium Chloride 0.9% 250 ML 250 ML IVPB SCH (13:52)
[2020-05-17] MEDS ORDERED: Promethazine HCl 25 MG in Sodium Chloride 0.9% 50 ML IVPB SCH (15:00)
[2020-05-17] MEDS: Promethazine HCl 25 MG in Sodium Chloride 0.9% 50 ML IVPB SCH ×2 (17:20→23:17)
[2020-05-17] MEDS ORDERED: Lorazepam 0.5 MG TAB PO PRN (19:20)
[2020-05-17] MEDS: Promethazine 25 MG TAB PO PRN (20:59)
[2020-05-17] MEDS: cloNIDine 0.2 MG TAB PO SCH (21:05)
[2020-05-18] MEDS: Promethazine HCl 25 MG in Sodium Chloride 0.9% 50 ML IVPB SCH ×3 (05:51→18:30)
[2020-05-18] MEDS: Sodium Bicarbonate 150 MEQ in Dextrose 5% in Water 850 ML IV SCH (06:25)
[2020-05-18 06:40] LABS: #Eosinphils 0.3 thou/uL (0.0-0.7); #Lymphocytes 1.8 thou/uL (1.20-3.40); #Monocytes 0.8 thou/uL (0.11-0.59); %Basophils 0.3 % (0.0-1.0); %Eosinophils 4.3 % (0.0-10.0); %Lymphocytes 23.1 % (21.0-51.0); %Monocytes 9.7 % (0.0-10.0); %Neutrophils 62.7 % (42.0-75.0); Hemoglobin 9.9 g/dL (12.0-16.0); Mean Corpuscular HGB CONC 33.2 g/dL (32.0-36.0); Mean Corpuscular Hemoglobin 29.3 pg (27.0-31.0); Mean Platelet Volume 6.7 fL (7.4-10.4); Platelet Count 349 thou/uL (130-400); Red Blood Cell (RBC) Count 3.38 mill/uL (4.20-5.40)
[2020-05-18 07:03] LABS: ALT (SGPT) 134 U/L (8-55); AST (SGOT) 241 U/L (5-34); Alkaline Phosphatase 84 U/L (40-110); Anion Gap 11 mmol/L (10-20); BUN (Urea Nitrogen) 22 mg/dL (9.8-20.1); Bilirubin, Total 0.5 mg/dL (0.2-1.2); CK (CPK) 1856 U/L (29-168); Calc. Creatinine Clearance 62 mL/min (70-130); Calcium 8.4 mg/dL (7.8-10.44); Carbon Dioxide 37 mmol/L (22-29); Chloride 93 mmol/L (98-107); Globulin 3.3 g/dL (2.4-3.5); Glucose 107 mg/dL (70-105); Protein, Total 6.3 g/dL (6.0-8.3); Sodium 139 mmol/L (136-145)
[2020-05-18 07:13] LABS: Potassium 2.4 mmol/L (3.5-5.1)
[2020-05-18] MEDS: Sodium Chloride 0.9% 1,000 ML IV SCH ×2 (09:20→23:39)
[2020-05-18] MEDS: Potassium Chloride 40 MEQ in Premix Bag 1 BAG IVPB SCH ×2 (09:20→20:38)
[2020-05-18] MEDS: Docusate 100 MG CAP PO SCH ×2 (10:45→20:11)
[2020-05-18] MEDS: Folic Acid 1 MG TAB PO SCH (10:45)
[2020-05-18] MEDS: cloNIDine 0.2 MG TAB PO SCH ×2 (10:45→20:11)
[2020-05-18] MEDS: Saccharomyces boulardii 250 MG CAP PO SCH (10:45)
[2020-05-18] MEDS: Aspirin Chewable 81 MG TAB PO SCH (10:45)
[2020-05-18] MEDS: Polyethylene Glycol 3350 17 GM Packet PO SCH (10:45)
[2020-05-18] MEDS: Ondansetron PF 4 MG/2 ML Vial IVP SCH ×3 (10:46→20:37)
[2020-05-18] MEDS ORDERED: Ondansetron PF 4 MG/2 ML Vial IVP SCH (12:00)
[2020-05-18] MEDS: Pantoprazole 40 MG VIAL IVP SCH ×2 (13:16→20:37)
[2020-05-18] MEDS ORDERED: Iopamidol-370 76% 500 ML 1 ML ONE (14:20)
[2020-05-18] MEDS: Ampicillin/Sulbactam 1.5 GM in Sodium Chloride 0.9% 100 ML IVPB SCH ×3 (14:48→20:00)
[2020-05-18] MEDS: Vancomycin HCl 750 MG in Sodium Chloride 0.9% 250 ML 250 ML IVPB SCH (15:56)
[2020-05-19] MEDS: Promethazine HCl 25 MG in Sodium Chloride 0.9% 50 ML IVPB SCH ×4 (01:00→20:13)
[2020-05-19] MEDS: Ampicillin/Sulbactam 1.5 GM in Sodium Chloride 0.9% 100 ML IVPB SCH ×4 (03:18→20:22)
[2020-05-19] MEDS: Ondansetron PF 4 MG/2 ML Vial IVP SCH ×3 (03:19→15:18)
[2020-05-19 07:24] LABS: #Basophils 0.1 thou/uL (0.0-0.2); #Eosinphils 0.5 thou/uL (0.0-0.7); #Lymphocytes 2.1 thou/uL (1.20-3.40); #Monocytes 0.8 thou/uL (0.11-0.59); #Neutrophils 3.5 thou/uL (1.40-6.50); %Basophils 0.8 % (0.0-1.0); %Eosinophils 7.3 % (0.0-10.0); %Lymphocytes 29.9 % (21.0-51.0); %Monocytes 11.1 % (0.0-10.0); %Neutrophils 50.9 % (42.0-75.0); Hemoglobin 9.7 g/dL (12.0-16.0); Mean Corpuscular HGB CONC 34.2 g/dL (32.0-36.0); Mean Corpuscular Hemoglobin 30.4 pg (27.0-31.0); Mean Platelet Volume 6.7 fL (7.4-10.4); Platelet Count 335 thou/uL (130-400); White Blood Cell (WBC) Count 6.9 thou/uL (4.8-10.8)
[2020-05-19 07:43] LABS: ALT (SGPT) 102 U/L (8-55); AST (SGOT) 135 U/L (5-34); Albumin 2.8 g/dL (3.5-5.0); Alkaline Phosphatase 85 U/L (40-110); Anion Gap 13 mmol/L (10-20); BUN (Urea Nitrogen) 18 mg/dL (9.8-20.1); Bilirubin, Direct 0.2 mg/dL (0.1-0.3); Bilirubin, Total 0.5 mg/dL (0.2-1.2); CK (CPK) 611 U/L (29-168); Calc. Creatinine Clearance 61 mL/min (70-130); Calcium 7.9 mg/dL (7.8-10.44); Carbon Dioxide 31 mmol/L (22-29); Chloride 98 mmol/L (98-107); Glucose 102 mg/dL (70-105); Sodium 139 mmol/L (136-145)
[2020-05-19 07:49] LABS: Potassium 2.8 mmol/L (3.5-5.1)
[2020-05-19] MEDS: cloNIDine 0.2 MG TAB PO SCH ×2 (09:37→20:19)
[2020-05-19] MEDS: Aspirin Chewable 81 MG TAB PO SCH (09:37)
[2020-05-19] MEDS: Potassium Chloride 40 MEQ in Premix Bag 1 BAG IVPB SCH ×2 (09:37→21:56)
[2020-05-19] MEDS: Docusate 100 MG CAP PO SCH ×2 (09:38→20:22)
[2020-05-19] MEDS: Saccharomyces boulardii 250 MG CAP PO SCH (09:38)
[2020-05-19] MEDS: Polyethylene Glycol 3350 17 GM Packet PO SCH (09:38)
[2020-05-19] MEDS: Folic Acid 1 MG TAB PO SCH (09:38)
[2020-05-19] MEDS: Pantoprazole 40 MG VIAL IVP SCH ×2 (09:38→21:57)
[2020-05-19] MEDS ORDERED: Albumin 25% 25 GM/100 ML BOT IVPB ONE (10:54)
[2020-05-19 11:20] LABS: Vancomycin, Trough 18.6 ug/mL
[2020-05-19] MEDS: Albumin 25% 25 GM/100 ML BOT IVPB SCH ×2 (14:11→18:40)
[2020-05-19] MEDS: Vancomycin HCl 750 MG in Sodium Chloride 0.9% 250 ML 250 ML IVPB SCH (15:18)
[2020-05-19] MEDS: NS 0.9% w/ 20 MEQ KCL 1,000 ML IV SCH ×2 (20:28→23:30)
[2020-05-19] MEDS: Acetaminophen 325 MG TAB PO PRN (22:02)
[2020-05-19] MEDS ORDERED: Ondansetron HCl/PF 8 MG in Sodium Chloride 0.9% 50 ML IVPB SCH (23:59)
[2020-05-20] MEDS: Albumin 25% 25 GM/100 ML BOT IVPB SCH ×2 (00:30→05:56)
[2020-05-20] MEDS: Ampicillin/Sulbactam 1.5 GM in Sodium Chloride 0.9% 100 ML IVPB SCH ×4 (03:00→21:51)
[2020-05-20] MEDS: Promethazine HCl 25 MG in Sodium Chloride 0.9% 50 ML IVPB SCH ×4 (03:03→21:58)
[2020-05-20] MEDS: Ondansetron PF 4 MG/2 ML Vial IVP SCH ×3 (05:58→17:28)
[2020-05-20 06:44] LABS: #Eosinphils 0.5 thou/uL (0.0-0.7); #Lymphocytes 2.1 thou/uL (1.20-3.40); #Monocytes 0.6 thou/uL (0.11-0.59); #Neutrophils 2.7 thou/uL (1.40-6.50); %Basophils 0.8 % (0.0-1.0); %Eosinophils 8.9 % (0.0-10.0); %Lymphocytes 35.1 % (21.0-51.0); %Monocytes 9.3 % (0.0-10.0); %Neutrophils 45.9 % (42.0-75.0); Hemoglobin 8.5 g/dL (12.0-16.0); Mean Corpuscular HGB CONC 33.9 g/dL (32.0-36.0); Mean Corpuscular Hemoglobin 30.4 pg (27.0-31.0); Mean Corpuscular Volume 89.9 fL (78.0-98.0); Mean Platelet Volume 6.8 fL (7.4-10.4); Platelet Count 258 thou/uL (130-400); White Blood Cell (WBC) Count 5.9 thou/uL (4.8-10.8)
[2020-05-20 07:02] LABS: ALT (SGPT) 108 U/L (8-55); AST (SGOT) 173 U/L (5-34); Albumin 3.5 g/dL (3.5-5.0); Alkaline Phosphatase 105 U/L (40-110); Anion Gap 13 mmol/L (10-20); BUN (Urea Nitrogen) 16 mg/dL (9.8-20.1); Bilirubin, Direct 0.4 mg/dL (0.1-0.3); Bilirubin, Total 0.8 mg/dL (0.2-1.2); CK (CPK) 281 U/L (29-168); Calc. Creatinine Clearance 63 mL/min (70-130); Calcium 8.2 mg/dL (7.8-10.44); Carbon Dioxide 28 mmol/L (22-29); Chloride 105 mmol/L (98-107); Glucose 97 mg/dL (70-105); Potassium 3.2 mmol/L (3.5-5.1); Protein, Total 6.2 g/dL (6.0-8.3); Sodium 143 mmol/L (136-145)
[2020-05-20] MEDS: Potassium Chloride 40 MEQ in Premix Bag 1 BAG IVPB SCH ×2 (08:54→21:50)
[2020-05-20] MEDS: Polyethylene Glycol 3350 17 GM Packet PO SCH (08:56)
[2020-05-20] MEDS: cloNIDine 0.2 MG TAB PO SCH ×2 (08:57→21:49)
[2020-05-20] MEDS: Docusate 100 MG CAP PO SCH ×2 (08:57→21:50)
[2020-05-20] MEDS: Pantoprazole 40 MG VIAL IVP SCH ×2 (08:57→21:51)
[2020-05-20] MEDS: Saccharomyces boulardii 250 MG CAP PO SCH (08:57)
[2020-05-20] MEDS: Folic Acid 1 MG TAB PO SCH (08:57)
[2020-05-20] MEDS: Aspirin Chewable 81 MG TAB PO SCH (08:57)
[2020-05-20] MEDS: HYDROcodone/Acetaminophen 5/325 mg Tablet PO PRN (12:05)
[2020-05-20] MEDS: Vancomycin HCl 750 MG in Sodium Chloride 0.9% 250 ML 250 ML IVPB SCH (12:06)
[2020-05-20] MEDS: NS 0.9% w/ 20 MEQ KCL 1,000 ML IV SCH ×2 (14:13→18:20)
[2020-05-21] MEDS: Ondansetron PF 4 MG/2 ML Vial IVP SCH ×5 (00:57→23:49)
[2020-05-21] MEDS: HYDROcodone/Acetaminophen 5/325 mg Tablet PO PRN ×2 (01:02→05:44)
[2020-05-21] MEDS: Ampicillin/Sulbactam 1.5 GM in Sodium Chloride 0.9% 100 ML IVPB SCH ×4 (02:44→20:32)
[2020-05-21] MEDS: Promethazine HCl 25 MG in Sodium Chloride 0.9% 50 ML IVPB SCH ×2 (02:55→09:41)
[2020-05-21] MEDS: Potassium Chloride 40 MEQ in Premix Bag 1 BAG IVPB SCH ×2 (08:41→20:34)
[2020-05-21] MEDS: NS 0.9% w/ 20 MEQ KCL 1,000 ML IV SCH (08:42)
[2020-05-21] MEDS: Aspirin Chewable 81 MG TAB PO SCH (08:58)
[2020-05-21] MEDS: Docusate 100 MG CAP PO SCH ×2 (08:58→20:33)
[2020-05-21] MEDS: Folic Acid 1 MG TAB PO SCH (08:58)
[2020-05-21] MEDS: Saccharomyces boulardii 250 MG CAP PO SCH (08:58)
[2020-05-21] MEDS: cloNIDine 0.2 MG TAB PO SCH (08:58)
[2020-05-21] MEDS: Polyethylene Glycol 3350 17 GM Packet PO SCH (08:59)
[2020-05-21] MEDS: Pantoprazole 40 MG VIAL IVP SCH ×2 (09:41→20:34)
[2020-05-21 11:41] LABS: #Eosinphils 0.6 thou/uL (0.0-0.7); #Lymphocytes 2.2 thou/uL (1.20-3.40); #Monocytes 0.6 thou/uL (0.11-0.59); #Neutrophils 5.1 thou/uL (1.40-6.50); %Basophils 0.3 % (0.0-1.0); %Eosinophils 6.7 % (0.0-10.0); %Lymphocytes 25.4 % (21.0-51.0); %Monocytes 7.3 % (0.0-10.0); %Neutrophils 60.4 % (42.0-75.0); Hemoglobin 9.7 g/dL (12.0-16.0); Mean Corpuscular HGB CONC 33.8 g/dL (32.0-36.0); Mean Corpuscular Hemoglobin 30.4 pg (27.0-31.0); Mean Corpuscular Volume 89.9 fL (78.0-98.0); Mean Platelet Volume 7.2 fL (7.4-10.4); Platelet Count 272 thou/uL (130-400); White Blood Cell (WBC) Count 8.5 thou/uL (4.8-10.8)
[2020-05-21 11:45] LABS: Vancomycin, Trough 16.1 ug/mL
[2020-05-21 11:47] LABS: ALT (SGPT) 83 U/L (8-55); AST (SGOT) 80 U/L (5-34); Albumin 3.6 g/dL (3.5-5.0); Alkaline Phosphatase 113 U/L (40-110); Anion Gap 14 mmol/L (10-20); BUN (Urea Nitrogen) 14 mg/dL (9.8-20.1); Bilirubin, Direct 0.3 mg/dL (0.1-0.3); Bilirubin, Total 0.7 mg/dL (0.2-1.2); Calc. Creatinine Clearance 67 mL/min (70-130); Calcium 8.5 mg/dL (7.8-10.44); Carbon Dioxide 22 mmol/L (22-29); Chloride 111 mmol/L (98-107); Glucose 114 mg/dL (70-105); Potassium 4.5 mmol/L (3.5-5.1); Protein, Total 6.4 g/dL (6.0-8.3); Sodium 142 mmol/L (136-145)
[2020-05-21] MEDS: Vancomycin HCl 750 MG in Sodium Chloride 0.9% 250 ML 250 ML IVPB SCH (12:38)
[2020-05-21] MEDS: Promethazine HCl 12.5 MG in Sodium Chloride 0.9% 50 ML IVPB SCH ×2 (16:04→20:32)
[2020-05-21 16:41] LABS: Bilirubin Negative (Negative); Blood, Urine 3+ (Negative); Clarity Clear (Clear); Glucose, Urine (Dipstick) Normal (Negative); Ketone, Urine Negative (Negative); Leukocyte Negative Leu/uL (Negative); Nitrite Negative (Negative); Protein, Urine (Dipstick) 50 mg/dL (Neg-Trace); RBC/HPF Greater than 50 HPF (0-3); Specific Gravity, Urine 1.012 (1.002-1.036); Squamous Epithelial 0-3 HPF (0-3); Urobilinogen Normal mg/dL (Less than 2); pH, Urine 7.5 (5.0-9.0)
[2020-05-21 16:42] LABS: Bacteria/HPF 1+ HPF (None Seen)
[2020-05-21] MEDS: Acetaminophen 325 MG TAB PO PRN (18:05)
[2020-05-21] MEDS: cloNIDine 0.3 MG TAB PO SCH (20:33)
[2020-05-21] MEDS: Acetaminophen/Codeine 30-300mg Tablet PO PRN (23:48)
[2020-05-22] MEDS: Ampicillin/Sulbactam 1.5 GM in Sodium Chloride 0.9% 100 ML IVPB SCH ×4 (03:55→21:00)
[2020-05-22] MEDS: Acetaminophen/Codeine 30-300mg Tablet PO PRN (03:55)
[2020-05-22] MEDS: NS 0.9% w/ 20 MEQ KCL 1,000 ML IV SCH ×2 (03:56→11:24)
[2020-05-22] MEDS: Promethazine HCl 12.5 MG in Sodium Chloride 0.9% 50 ML IVPB SCH (04:09)
[2020-05-22] MEDS: Ondansetron PF 4 MG/2 ML Vial IVP SCH (05:06)
[2020-05-22 06:23] LABS: #Basophils 0.1 thou/uL (0.0-0.2); #Eosinphils 0.7 thou/uL (0.0-0.7); #Lymphocytes 2.1 thou/uL (1.20-3.40); #Monocytes 0.6 thou/uL (0.11-0.59); #Neutrophils 5.4 thou/uL (1.40-6.50); %Basophils 0.6 % (0.0-1.0); %Eosinophils 8.1 % (0.0-10.0); %Lymphocytes 23.4 % (21.0-51.0); %Monocytes 6.9 % (0.0-10.0); Hemoglobin 9.8 g/dL (12.0-16.0); Mean Corpuscular HGB CONC 33.8 g/dL (32.0-36.0); Mean Corpuscular Hemoglobin 30.4 pg (27.0-31.0); Mean Corpuscular Volume 90.1 fL (78.0-98.0); Mean Platelet Volume 7.5 fL (7.4-10.4); Platelet Count 269 thou/uL (130-400); RBC Distribution Width 14.1 % (11.5-14.5); Red Blood Cell (RBC) Count 3.23 mill/uL (4.20-5.40); White Blood Cell (WBC) Count 8.8 thou/uL (4.8-10.8)
[2020-05-22 06:39] LABS: ALT (SGPT) 73 U/L (8-55); AST (SGOT) 54 U/L (5-34); Albumin 3.3 g/dL (3.5-5.0); Alkaline Phosphatase 112 U/L (40-110); Anion Gap 11 mmol/L (10-20); BUN (Urea Nitrogen) 13 mg/dL (9.8-20.1); Bilirubin, Total 0.8 mg/dL (0.2-1.2); Calc. Creatinine Clearance 70 mL/min (70-130); Calcium 8.4 mg/dL (7.8-10.44); Carbon Dioxide 22 mmol/L (22-29); Chloride 113 mmol/L (98-107); Globulin 3.1 g/dL (2.4-3.5); Glucose 98 mg/dL (70-105); Potassium 4.1 mmol/L (3.5-5.1); Protein, Total 6.4 g/dL (6.0-8.3); Sodium 142 mmol/L (136-145)
[2020-05-22] MEDS: Aspirin Chewable 81 MG TAB PO SCH (08:15)
[2020-05-22] MEDS: Docusate 100 MG CAP PO SCH ×2 (08:15→21:04)
[2020-05-22] MEDS: Saccharomyces boulardii 250 MG CAP PO SCH (08:15)
[2020-05-22] MEDS: Iron Polysaccharides Complex 150 MG CAP PO SCH (08:15)
[2020-05-22] MEDS: Folic Acid 1 MG TAB PO SCH (08:15)
[2020-05-22] MEDS: cloNIDine 0.3 MG TAB PO SCH ×3 (08:16→21:04)
[2020-05-22] MEDS: Pantoprazole 40 MG VIAL IVP SCH ×2 (08:16→21:05)
[2020-05-22] MEDS: Polyethylene Glycol 3350 17 GM Packet PO SCH (08:16)
[2020-05-22] MEDS: Potassium Chloride 40 MEQ in Premix Bag 1 BAG IVPB SCH ×2 (09:41→21:01)
[2020-05-22] MEDS: Ondansetron ODT 4 MG TAB PO SCH ×3 (09:42→21:22)
[2020-05-22] MEDS: Vancomycin HCl 750 MG in Sodium Chloride 0.9% 250 ML 250 ML IVPB SCH (11:24)
[2020-05-22] MEDS: Promethazine 25 MG TAB PO SCH ×3 (12:45→23:16)
[2020-05-22] MEDS: HYDROcodone/Acetaminophen 5/325 mg Tablet PO PRN (23:15)
[2020-05-23] MEDS: NS 0.9% w/ 20 MEQ KCL 1,000 ML IV SCH ×2 (01:57→18:02)
[2020-05-23] MEDS: Ampicillin/Sulbactam 1.5 GM in Sodium Chloride 0.9% 100 ML IVPB SCH (01:59)
[2020-05-23] MEDS: Ondansetron ODT 4 MG TAB PO SCH ×4 (03:05→21:09)
[2020-05-23] MEDS: HYDROcodone/Acetaminophen 5/325 mg Tablet PO PRN (03:16)
[2020-05-23] MEDS: Promethazine 25 MG TAB PO SCH ×4 (06:25→23:41)
[2020-05-23 07:04] LABS: #Basophils 0.1 thou/uL (0.0-0.2); #Eosinphils 0.7 thou/uL (0.0-0.7); #Lymphocytes 2.5 thou/uL (1.20-3.40); #Monocytes 0.7 thou/uL (0.11-0.59); #Neutrophils 5.6 thou/uL (1.40-6.50); %Basophils 0.8 % (0.0-1.0); %Eosinophils 7.2 % (0.0-10.0); %Lymphocytes 26.1 % (21.0-51.0); %Monocytes 7.7 % (0.0-10.0); %Neutrophils 58.2 % (42.0-75.0); Hemoglobin 10.4 g/dL (12.0-16.0); Mean Corpuscular HGB CONC 31.7 g/dL (32.0-36.0); Mean Corpuscular Hemoglobin 28.7 pg (27.0-31.0); Mean Corpuscular Volume 90.4 fL (78.0-98.0); Mean Platelet Volume 7.6 fL (7.4-10.4); Platelet Count 297 thou/uL (130-400); RBC Distribution Width 14.2 % (11.5-14.5); Red Blood Cell (RBC) Count 3.62 mill/uL (4.20-5.40); White Blood Cell (WBC) Count 9.5 thou/uL (4.8-10.8)
[2020-05-23 07:27] LABS: Anion Gap 13 mmol/L (10-20); BUN (Urea Nitrogen) 12 mg/dL (9.8-20.1); CK (CPK) 96 U/L (29-168); Calc. Creatinine Clearance 71 mL/min (70-130); Calcium 8.3 mg/dL (7.8-10.44); Carbon Dioxide 20 mmol/L (22-29); Chloride 110 mmol/L (98-107); Glucose 89 mg/dL (70-105); Potassium 4.2 mmol/L (3.5-5.1); Sodium 139 mmol/L (136-145)
[2020-05-23] MEDS ORDERED: Fleet Enema 133 ML BOT FS SCH (08:30)
[2020-05-23] MEDS: Pantoprazole 40 MG VIAL IVP SCH ×2 (09:09→21:10)
[2020-05-23] MEDS: Folic Acid 1 MG TAB PO SCH (09:09)
[2020-05-23] MEDS: Iron Polysaccharides Complex 150 MG CAP PO SCH (09:09)
[2020-05-23] MEDS: Saccharomyces boulardii 250 MG CAP PO SCH (09:10)
[2020-05-23] MEDS: Polyethylene Glycol 3350 17 GM Packet PO SCH (09:10)
[2020-05-23] MEDS: Aspirin Chewable 81 MG TAB PO SCH (09:10)
[2020-05-23] MEDS: Docusate 100 MG CAP PO SCH ×2 (09:10→21:09)
[2020-05-23] MEDS: Potassium Chloride 40 MEQ in Premix Bag 1 BAG IVPB SCH ×2 (09:17→20:59)
[2020-05-23] MEDS: Amlodipine 10 MG TAB PO SCH (09:17)
[2020-05-23] MEDS: cloNIDine 0.3 MG TAB PO SCH ×3 (09:35→21:08)
[2020-05-23] MEDS: Amoxicillin/Potassium Clav 500 MG TAB PO SCH ×3 (09:35→21:07)
[2020-05-23] MEDS: Vancomycin HCl 750 MG in Sodium Chloride 0.9% 250 ML 250 ML IVPB SCH (11:57)
[2020-05-23] MEDS: Acetaminophen 325 MG TAB PO PRN (21:10)
[2020-05-24] MEDS: Ondansetron ODT 4 MG TAB PO SCH ×4 (03:23→22:10)
[2020-05-24] MEDS: HYDROcodone/Acetaminophen 5/325 mg Tablet PO PRN (04:48)
[2020-05-24] MEDS: Promethazine 25 MG TAB PO SCH ×3 (05:46→18:28)
[2020-05-24] MEDS: Docusate 100 MG CAP PO SCH ×2 (08:35→22:10)
[2020-05-24] MEDS: Saccharomyces boulardii 250 MG CAP PO SCH (08:35)
[2020-05-24] MEDS: Aspirin Chewable 81 MG TAB PO SCH (08:35)
[2020-05-24] MEDS: Amlodipine 10 MG TAB PO SCH (08:35)
[2020-05-24] MEDS: Folic Acid 1 MG TAB PO SCH (08:35)
[2020-05-24] MEDS: cloNIDine 0.3 MG TAB PO SCH ×3 (08:35→22:10)
[2020-05-24] MEDS: Amoxicillin/Potassium Clav 500 MG TAB PO SCH ×3 (08:36→22:07)
[2020-05-24] MEDS: Pantoprazole 40 MG VIAL IVP SCH ×2 (08:36→22:10)
[2020-05-24] MEDS: Iron Polysaccharides Complex 150 MG CAP PO SCH (08:36)
[2020-05-24] MEDS: Potassium Chloride 40 MEQ in Premix Bag 1 BAG IVPB SCH ×2 (08:37→22:11)
[2020-05-24] MEDS: Polyethylene Glycol 3350 17 GM Packet PO SCH (08:37)
[2020-05-24] MEDS ORDERED: Milk Of Magnesia 30 ML UDCUP PO SCH (09:00)
[2020-05-24 09:20] LABS: #Eosinphils 0.6 thou/uL (0.0-0.7); #Lymphocytes 2.3 thou/uL (1.20-3.40); #Monocytes 0.6 thou/uL (0.11-0.59); #Neutrophils 4.6 thou/uL (1.40-6.50); %Basophils 0.2 % (0.0-1.0); %Eosinophils 7.1 % (0.0-10.0); %Lymphocytes 28.8 % (21.0-51.0); %Monocytes 7.3 % (0.0-10.0); %Neutrophils 56.6 % (42.0-75.0); Hemoglobin 9.6 g/dL (12.0-16.0); Mean Corpuscular HGB CONC 32.6 g/dL (32.0-36.0); Mean Corpuscular Hemoglobin 29.2 pg (27.0-31.0); Mean Corpuscular Volume 89.3 fL (78.0-98.0); Mean Platelet Volume 7.5 fL (7.4-10.4); Platelet Count 288 thou/uL (130-400); Red Blood Cell (RBC) Count 3.28 mill/uL (4.20-5.40); White Blood Cell (WBC) Count 8.1 thou/uL (4.8-10.8)
[2020-05-24] MEDS: NS 0.9% w/ 20 MEQ KCL 1,000 ML IV SCH ×2 (09:30→22:12)
[2020-05-24 09:35] LABS: ALT (SGPT) 47 U/L (8-55); AST (SGOT) 32 U/L (5-34); Albumin 3.4 g/dL (3.5-5.0); Alkaline Phosphatase 121 U/L (40-110); Anion Gap 13 mmol/L (10-20); BUN (Urea Nitrogen) 13 mg/dL (9.8-20.1); Bilirubin, Total 0.7 mg/dL (0.2-1.2); Calc. Creatinine Clearance 70 mL/min (70-130); Calcium 8.3 mg/dL (7.8-10.44); Carbon Dioxide 23 mmol/L (22-29); Chloride 109 mmol/L (98-107); Globulin 3.1 g/dL (2.4-3.5); Glucose 102 mg/dL (70-105); Protein, Total 6.5 g/dL (6.0-8.3); Sodium 141 mmol/L (136-145)
[2020-05-24 09:39] LABS: Vancomycin, Trough 16.2 ug/mL
[2020-05-24] MEDS: Vancomycin HCl 750 MG in Sodium Chloride 0.9% 250 ML 250 ML IVPB SCH (13:23)
[2020-05-25] MEDS: Promethazine 25 MG TAB PO SCH ×4 (00:28→21:19)
[2020-05-25] MEDS: Ondansetron ODT 4 MG TAB PO SCH ×3 (03:41→17:15)
[2020-05-25 05:34] LABS: #Eosinphils 0.5 thou/uL (0.0-0.7); #Lymphocytes 2.6 thou/uL (1.20-3.40); #Monocytes 0.6 thou/uL (0.11-0.59); #Neutrophils 3.9 thou/uL (1.40-6.50); %Basophils 0.5 % (0.0-1.0); %Eosinophils 7.1 % (0.0-10.0); %Lymphocytes 34.2 % (21.0-51.0); %Neutrophils 50.2 % (42.0-75.0); Hemoglobin 10.4 g/dL (12.0-16.0); Mean Corpuscular HGB CONC 33.1 g/dL (32.0-36.0); Mean Corpuscular Hemoglobin 29.6 pg (27.0-31.0); Mean Corpuscular Volume 89.5 fL (78.0-98.0); Mean Platelet Volume 7.4 fL (7.4-10.4); Platelet Count 312 thou/uL (130-400); RBC Distribution Width 14.3 % (11.5-14.5); Red Blood Cell (RBC) Count 3.49 mill/uL (4.20-5.40); White Blood Cell (WBC) Count 7.7 thou/uL (4.8-10.8)
[2020-05-25 06:00] LABS: Albumin 3.5 g/dL (3.5-5.0); Alkaline Phosphatase 126 U/L (40-110); Anion Gap 12 mmol/L (10-20); BUN (Urea Nitrogen) 10 mg/dL (9.8-20.1); Bilirubin, Direct 0.3 mg/dL (0.1-0.3); Bilirubin, Total 0.7 mg/dL (0.2-1.2); Calc. Creatinine Clearance 66 mL/min (70-130); Calcium 8.7 mg/dL (7.8-10.44); Carbon Dioxide 22 mmol/L (22-29); Chloride 109 mmol/L (98-107); Glucose 110 mg/dL (70-105); Potassium 4.5 mmol/L (3.5-5.1); Protein, Total 6.9 g/dL (6.0-8.3); Sodium 138 mmol/L (136-145)
[2020-05-25 06:01] LABS: ALT (SGPT) 39 U/L (8-55); AST (SGOT) 25 U/L (5-34)
[2020-05-25] MEDS: Iron Polysaccharides Complex 150 MG CAP PO SCH (09:16)
[2020-05-25] MEDS: Saccharomyces boulardii 250 MG CAP PO SCH (09:17)
[2020-05-25] MEDS: Amlodipine 10 MG TAB PO SCH (09:17)
[2020-05-25] MEDS: Amoxicillin/Potassium Clav 500 MG TAB PO SCH ×3 (09:17→19:58)
[2020-05-25] MEDS: Aspirin Chewable 81 MG TAB PO SCH (09:17)
[2020-05-25] MEDS: Docusate 100 MG CAP PO SCH ×2 (09:17→19:59)
[2020-05-25] MEDS: Fluconazole 100 MG TAB PO SCH (09:17)
[2020-05-25] MEDS: Folic Acid 1 MG TAB PO SCH (09:17)
[2020-05-25] MEDS: cloNIDine 0.3 MG TAB PO SCH ×3 (09:18→20:00)
[2020-05-25] MEDS: Polyethylene Glycol 3350 17 GM Packet PO SCH (09:18)
[2020-05-25] MEDS: Pantoprazole 40 MG VIAL IVP SCH ×2 (09:18→19:59)
[2020-05-25] MEDS: Potassium Chloride 40 MEQ in Premix Bag 1 BAG IVPB SCH ×2 (09:41→19:59)
[2020-05-25] MEDS: Vancomycin HCl 750 MG in Sodium Chloride 0.9% 250 ML 250 ML IVPB SCH (12:14)
[2020-05-25] MEDS: NS 0.9% w/ 20 MEQ KCL 1,000 ML IV SCH (17:10)
[2020-05-26] MEDS: Ondansetron ODT 4 MG TAB PO SCH ×2 (01:17→09:34)
[2020-05-26] MEDS: NS 0.9% w/ 20 MEQ KCL 1,000 ML IV SCH ×2 (03:14→12:51)
[2020-05-26] MEDS: Promethazine 25 MG TAB PO SCH (05:23)
[2020-05-26] MEDS: Folic Acid 1 MG TAB PO SCH (09:34)
[2020-05-26] MEDS: Amlodipine 10 MG TAB PO SCH (09:34)
[2020-05-26] MEDS: Aspirin Chewable 81 MG TAB PO SCH (09:34)
[2020-05-26] MEDS: Fluconazole 100 MG TAB PO SCH (09:34)
[2020-05-26] MEDS: Saccharomyces boulardii 250 MG CAP PO SCH (09:34)
[2020-05-26] MEDS: cloNIDine 0.3 MG TAB PO SCH ×3 (09:34→19:41)
[2020-05-26] MEDS: Iron Polysaccharides Complex 150 MG CAP PO SCH (09:34)
[2020-05-26] MEDS: Polyethylene Glycol 3350 17 GM Packet PO SCH (09:35)
[2020-05-26] MEDS: Docusate 100 MG CAP PO SCH ×2 (09:35→19:42)
[2020-05-26] MEDS: Pantoprazole 40 MG VIAL IVP SCH ×2 (09:35→19:41)
[2020-05-26] MEDS ORDERED: Promethazine 25 MG TAB PO PRN (09:37)
[2020-05-26] MEDS ORDERED: Ondansetron ODT 4 MG TAB PO PRN (09:38)
[2020-05-26] MEDS: Potassium Chloride 40 MEQ in Premix Bag 1 BAG IVPB SCH ×2 (09:44→19:42)
[2020-05-26] MEDS ORDERED: Promethazine 25 MG TAB PO SCH (09:45)
[2020-05-26 11:24] LABS: Vancomycin, Trough 19.2 ug/mL
[2020-05-26] MEDS: Vancomycin HCl 750 MG in Sodium Chloride 0.9% 250 ML 250 ML IVPB SCH (12:10)
[2020-05-26 19:42] VITALS: BP 121/79
[2020-05-26 19:44] VITALS: TEMP 98.3
== END 2020-05-26 20:39 | DRG 551 ==
LOC: ERS 15:47 → T4-A 22:45
PROVIDERS: ADMIT Specialist; ATTEND Specialist
PROC: 0DJ08ZZ Inspection of Upper Intestinal Tract, Via Natural or Artificial Opening Endoscopic (ICD-10-PCS; principal; 2020-05-17)
DX: M46.44 Discitis, unspecified, thoracic region (principal); G06.1 Intraspinal abscess and granuloma; K68.12 Psoas muscle abscess; M46.24 Osteomyelitis of vertebra, thoracic region; M62.82 Rhabdomyolysis; N17.9 Acute kidney failure, unspecified; E87.3 Alkalosis; R78.81 Bacteremia; Z20.822 Contact with and (suspected) exposure to COVID-19; K44.9 Diaphragmatic hernia without obstruction or gangrene; F32.9 Major depressive disorder, single episode, unspecified; Z96.641 Presence of right artificial hip joint; B95.62 Methicillin resistant Staphylococcus aureus infection as the cause of diseases classified elsewhere; T36.8X5A Adverse effect of other systemic antibiotics, initial encounter; R74.01 Elevation of levels of liver transaminase levels; E86.0 Dehydration; N30.90 Cystitis, unspecified without hematuria; D63.8 Anemia in other chronic diseases classified elsewhere; E87.6 Hypokalemia; B96.20 Unspecified Escherichia coli [E. coli] as the cause of diseases classified elsewhere; Z79.899 Other long term (current) drug therapy; Z98.1 Arthrodesis status; Z80.0 Family history of malignant neoplasm of digestive organs; Z86.010 Personal history of colon polyps; Z88.1 Allergy status to other antibiotic agents
CPT/HCPCS: 36415; 70496; 71045; 72156; 72157; 72158; 74176; 76705; 80048; 80053; 80076; 80202; 81001; 81003; 81015; 82550; 82728; 83540; 83550; 83605; 85025; 86140; 87040; 87077; 87086; 87186; 87635; 93005; 96365; 96367; A9579; C9113; J0295; J0692; J2405; J2550; J2704; J3370; J3480; J3490; J7050; J7070; P9047; Q0162; Q0169; Q9967; U0003; U0005

== ENCOUNTER 2021-01-30 15:02 | Outpatient (CLI) | payer OTHER | END 2021-01-30 15:03 | disposition home or self-care (01) | LOC: BICMRI 15:02 | PROVIDERS: ATTEND Internal Medicine Infectious Disease | DX: M46.46 Discitis, unspecified, lumbar region (principal); M47.816 Spondylosis without myelopathy or radiculopathy, lumbar region; M51.36 Other intervertebral disc degeneration, lumbar region; M41.9 Scoliosis, unspecified; M46.26 Osteomyelitis of vertebra, lumbar region | CPT/HCPCS: 72158; 82565 ==

== ENCOUNTER 2021-07-27 13:06 | Outpatient (CLI) | payer BC | END 2021-07-27 13:07 | disposition home or self-care (01) | LOC: BICMAMMO 13:06 | PROVIDERS: ATTEND Specialist | DX: Z12.31 Encounter for screening mammogram for malignant neoplasm of breast (principal); M81.0 Age-related osteoporosis without current pathological fracture; T84.7XXA Infection and inflammatory reaction due to other internal orthopedic prosthetic devices, implants and grafts, initial encounter | CPT/HCPCS: 72170; 77063; 77067; 77080 ==

== ENCOUNTER 2023-12-16 09:31 | Outpatient (CLI) | payer BC | END 2023-12-16 09:32 | disposition home or self-care (01) | LOC: BICMAMMO 09:31 | PROVIDERS: ATTEND Specialist | DX: Z12.31 Encounter for screening mammogram for malignant neoplasm of breast (principal); Z13.820 Encounter for screening for osteoporosis; M85.852 Other specified disorders of bone density and structure, left thigh; M81.0 Age-related osteoporosis without current pathological fracture | CPT/HCPCS: 77063; 77067; 77080 ==

== ENCOUNTER 2024-11-19 13:45 | Outpatient (CLI) | payer BC ==
[2024-11-19 14:37] LABS: Estimated GFR - POC 71.0
== END 2024-11-19 13:46 | disposition home or self-care (01) ==
LOC: SCSMRI 13:45
PROVIDERS: ATTEND Specialist
DX: Z91.81 History of falling (principal)
CPT/HCPCS: 36415; 70553; 76376; 82565

== ENCOUNTER 2024-11-19 16:01 | Observation (INO) | payer BC ==
[2024-11-19 17:29] LABS: #Basophils 0.06 10x3/uL (0.0-0.2); #Eosinophils 0.44 10x3/uL (0.0-0.7); #Monocytes 0.64 10x3/uL (0.11-0.59); #Neutrophils 4.36 10x3/uL (1.40-6.50); %Basophils 0.8 % (0.0-1.0); %Eosinophils 5.5 % (0.0-10.0); %Lymphocytes 30.7 % (21.0-51.0); %Monocytes 8.1 % (0.0-10.0); %Neutrophils 54.8 % (42.0-75.0); Hematocrit 40.3 % (36.0-47.0); Hemoglobin 13.1 g/dL (12.0-16.0); Mean Corpuscular Hemoglobin 32.4 pg (27.0-31.0); Mean Corpuscular Volume 99.8 fL (78.0-98.0); Platelet Count 249 10x3/uL (130-400); Red Blood Cell (RBC) Count 4.04 mill/uL (4.20-5.40); White Blood Cell (WBC) Count 7.95 10x3/uL (4.8-10.8)
[2024-11-19 17:46] LABS: ALT (SGPT) 17 U/L (Less than 34); AST (SGOT) 24 U/L (11-34); Albumin 3.7 g/dL (3.1-4.5); Alkaline Phosphatase 63 U/L (40-110); Anion Gap 11 mmol/L (10-20); BUN (Urea Nitrogen) 15 mg/dL (9.8-20.1); Bilirubin, Total 0.9 mg/dL (0.3-1.2); Calc. Creatinine Clearance 0 mL/min (70-130); Calcium 9.2 mg/dL (7.8-10.44); Carbon Dioxide 22 mmol/L (23-31); Chloride 110 mmol/L (98-107); Globulin 2.9 g/dL (2.4-3.5); Glucose 77 mg/dL (80-115); Potassium 3.7 mmol/L (3.5-5.1); Sodium 139 mmol/L (136-145)
[2024-11-19 17:50] LABS: INR-International Normal Ratio 1.0; Prothrombin Time 13.5 sec (12.0-14.7)
[2024-11-19 17:51] LABS: PTT 30.5 sec (22.9-36.1)
[2024-11-19] MEDS ORDERED: Senokot S 8.6-50 MG TAB PO PRN (19:00)
[2024-11-19] MEDS ORDERED: Ondansetron PF 4 MG/2 ML Vial IVP PRN (19:00)
[2024-11-19] MEDS ORDERED: Acetaminophen 325 MG TAB PO PRN (19:00)
[2024-11-19] MEDS ORDERED: hydrALAZINE 20 MG/ML VIAL SLOW IVP PRN (19:04)
[2024-11-19] MEDS: Rosuvastatin 20 MG TAB PO SCH (21:26)
[2024-11-19] MEDS: Ferrous Sulfate 325 MG TAB PO SCH (21:26)
[2024-11-19 21:36] VITALS: BMI 25.2
[2024-11-20 04:28] LABS: Anion Gap 12 mmol/L (10-20); BUN (Urea Nitrogen) 17 mg/dL (9.8-20.1); Calc. Creatinine Clearance 74 mL/min (70-130); Calcium 9.2 mg/dL (7.8-10.44); Carbon Dioxide 19 mmol/L (23-31); Chloride 114 mmol/L (98-107); Glucose 113 mg/dL (80-115); Magnesium 2.2 mg/dL (1.6-2.6); Potassium 4.1 mmol/L (3.5-5.1); Sodium 141 mmol/L (136-145)
[2024-11-20 04:55] LABS: Thyroid Stimulating Hormone 2.0605 uIU/mL (0.35-4.94); Vitamin B12 466.0 pg/mL (211-911)
[2024-11-20] MEDS: BuPROPion XL 150 MG ER.TAB PO SCH (08:24)
[2024-11-20] MEDS: Minoxidil 2.5 MG TAB PO SCH (08:24)
[2024-11-20] MEDS: Cyanocobalamin (Vitamin B-12) 1,000 MCG TAB PO SCH (08:24)
[2024-11-20] MEDS: Magnesium Oxide 400 MG TAB PO SCH (08:25)
[2024-11-20] MEDS: Pantoprazole 40 MG DR.TAB PO SCH (08:25)
[2024-11-20] MEDS ORDERED: VYVANSE 50 MG PO SCH (09:00)
[2024-11-20 12:39] VITALS: BP 120/79; TEMP 98.1
== END 2024-11-20 14:37 | disposition home or self-care (01) ==
LOC: ERS 16:01 → 2SE 19:05
PROVIDERS: ADMIT Student in an Organized Health Care Education/Training Program; ATTEND Hospitalist
DX: I62.02 Nontraumatic subacute subdural hemorrhage (principal); I62.03 Nontraumatic chronic subdural hemorrhage; R26.2 Difficulty in walking, not elsewhere classified; E78.5 Hyperlipidemia, unspecified; F90.9 Attention-deficit hyperactivity disorder, unspecified type; F32.A Depression, unspecified; Z96.641 Presence of right artificial hip joint; Z88.1 Allergy status to other antibiotic agents; Z79.899 Other long term (current) drug therapy; Z91.81 History of falling
CPT/HCPCS: 36415; 70553; 76376; 80048; 80053; 82565; 82607; 83735; 84443; 85025; 85610; 85730; 99285; G0378

== ENCOUNTER 2024-12-23 09:11 | Outpatient (CLI) | payer BC | END 2024-12-23 09:12 | disposition home or self-care (01) | LOC: BICMAMMO 09:11 | PROVIDERS: ATTEND Specialist | DX: Z12.31 Encounter for screening mammogram for malignant neoplasm of breast (principal); M81.0 Age-related osteoporosis without current pathological fracture; M85.89 Other specified disorders of bone density and structure, multiple sites | CPT/HCPCS: 77063; 77067; 77080 ==